=== PATIENT | male | born 1955 | race Two or more races ===

== ENCOUNTER 2018-02-13 17:25 | Inpatient (IN) | payer SELFPAY ==
[2018-02-13] MEDS ORDERED: CONTRAST GIVEN. MC (18:15)
[2018-02-13 18:26] LABS: ADD MAN DIFF? NO
[2018-02-13] MEDS: IOHEXOL 300 MG/ML 100ML VIAL. IV (18:30)
[2018-02-13 18:37] LABS: BASO # 0.1 x10^3/uL (0.0-0.2); BASO % 1 % (0-3); EOS % 0 % (0-3); HEMATOCRIT 30.6 % (39.0-53.0); LYMPH # 1.9 x10^3/uL (1.0-4.8); LYMPH % 24 % (24-48); MEAN CORPUSCULAR HEMOGLOBIN 25 pg (25-35); MEAN CORPUSCULAR HGB CONC 33 g/dL (31-37); MEAN CORPUSCULAR VOLUME 76 fL (79-100); MONO % 13 % (0-9); NEUT # 4.8 x10^3uL (1.8-7.7); NEUT % 62 % (31-73); PLATELET COUNT 113 x10^3/uL (140-400); RED BLOOD COUNT 4.06 x10^6/uL (4.30-5.70); RED CELL DISTRIBUTION WIDTH 16.5 % (11.5-14.5); WHITE BLOOD COUNT 7.8 x10^3/uL (4.0-11.0)
[2018-02-13 18:39] LABS: AMMONIA 83 mcmol/L (11-34)
[2018-02-13 18:42] LABS: ANION GAP 10 (6-14); BLOOD UREA NITROGEN 31 mg/dL (8-26); BUN/CREATININE RATIO 34 (6-20); CALCIUM 8.6 mg/dL (8.5-10.1); CARBON DIOXIDE 22 mmol/L (21-32); CHLORIDE 106 mmol/L (98-107); CREATININE 0.9 mg/dL (0.7-1.3); GFR 85.8; GLUCOSE 95 mg/dL (70-99); POTASSIUM 4.7 mmol/L (3.5-5.1); SODIUM 138 mmol/L (136-145)
[2018-02-13 18:47] LABS: ALBUMIN 2.6 g/dL (3.4-5.0); ALBUMIN/GLOBULIN RATIO 0.6 (1.0-1.7); ALK PHOS 94 U/L (46-116); ALT (SGPT) 53 U/L (16-63); AST (SGOT) 132 U/L (15-37); TOTAL BILIRUBIN 2.3 mg/dL (0.2-1.0); TOTAL PROTEIN 7.2 g/dL (6.4-8.2)
[2018-02-13 18:49] LABS: TROPONINI < 0.017 ng/mL (0.000-0.055)
[2018-02-13] MEDS: PANTOPRAZOLE IV PUSH 40 MG VIAL. IVP (19:40)
[2018-02-13 19:52] LABS: LIPASE 149 U/L (73-393)
[2018-02-13] MEDS: OCTREOTIDE 100 MCG/ML VIAL IV (19:52)
[2018-02-13 19:56] LABS: INR 1.6 (0.8-1.1); PROTHROMBIN TIME PATIENT 18.3 SEC (11.7-14.0)
[2018-02-13] MEDS: IV NORMAL SALINE 1000ML BAG 1,000 ML IV ×2 (20:00→22:45)
[2018-02-13] MEDS: ONDANSETRON PF 4 MG/2 ML VIAL. IV (20:00)
[2018-02-13 20:01] LABS: PARTIAL THROMBOPLASTIN TIME 34 SEC (24-38)
[2018-02-13] MEDS: PANTOPRAZOLE SODIUM IV DRIP 80 MG in IV NORMAL SALINE 100ML 100 ML IV (20:04)
[2018-02-13] MEDS: OCTREOTIDE 500 MCG in IV NORMAL SALINE 100ML 100 ML IV (20:32)
[2018-02-13] MEDS ORDERED: ONDANSETRON PF 4 MG/2 ML VIAL. IV (22:45)
[2018-02-14 01:29] LABS: HEMOGLOBIN 7.9 g/dL (13.0-17.5)
[2018-02-14] MEDS: PANTOPRAZOLE SODIUM IV DRIP 80 MG in IV NORMAL SALINE 100ML 100 ML IV ×3 (05:53→23:13)
[2018-02-14 06:41] LABS: ADD MAN DIFF? NO
[2018-02-14 06:54] LABS: BASO # 0.1 x10^3/uL (0.0-0.2); BASO % 1 % (0-3); EOS % 0 % (0-3); HEMATOCRIT 22.1 % (39.0-53.0); HEMOGLOBIN 7.3 g/dL (13.0-17.5); LYMPH # 3.2 x10^3/uL (1.0-4.8); LYMPH % 27 % (24-48); MEAN CORPUSCULAR HEMOGLOBIN 25 pg (25-35); MEAN CORPUSCULAR HGB CONC 33 g/dL (31-37); MEAN CORPUSCULAR VOLUME 75 fL (79-100); MONO # 1.3 x10^3/uL (0.0-1.1); MONO % 11 % (0-9); NEUT # 7.2 x10^3uL (1.8-7.7); NEUT % 61 % (31-73); PLATELET COUNT 89 x10^3/uL (140-400); RED BLOOD COUNT 2.95 x10^6/uL (4.30-5.70); RED CELL DISTRIBUTION WIDTH 16.3 % (11.5-14.5); WHITE BLOOD COUNT 11.8 x10^3/uL (4.0-11.0)
[2018-02-14 07:10] LABS: ALK PHOS 67 U/L (46-116); ALT (SGPT) 43 U/L (16-63); ANION GAP 10 (6-14); AST (SGOT) 125 U/L (15-37); BLOOD UREA NITROGEN 30 mg/dL (8-26); CALCIUM 7.5 mg/dL (8.5-10.1); CARBON DIOXIDE 22 mmol/L (21-32); CHLORIDE 110 mmol/L (98-107); CREATININE 0.9 mg/dL (0.7-1.3); DIRECT BILIRUBIN 1.1 mg/dL (0.0-0.2); GFR 85.8; GLUCOSE 89 mg/dL (70-99); POTASSIUM 4.4 mmol/L (3.5-5.1); SODIUM 142 mmol/L (136-145); TOTAL BILIRUBIN 1.8 mg/dL (0.2-1.0); TOTAL PROTEIN 5.6 g/dL (6.4-8.2)
[2018-02-14] MEDS ORDERED: PROPOFOL 40 ML IV (08:04)
[2018-02-14] MEDS: EPINEPHrine SYRINGE 1 MG/10 ML SYRINGE IM (08:27)
[2018-02-14] MEDS ORDERED: EPINEPHrine SYRINGE 1 MG/10 ML SYRINGE (08:33)
[2018-02-14] MEDS: IV NORMAL SALINE 1000ML BAG 1,000 ML IV ×2 (08:45→16:57)
[2018-02-14] MEDS ORDERED: NICOTINE 21MG PATCH. TD (11:15)
[2018-02-14] MEDS ORDERED: MORPHINE SULFATE 2 MG/ML DISP.SYRIN. IV (11:15)
[2018-02-14] MEDS ORDERED: chlordiazePOXIDE HCL 25 MG CAPSULE PO (11:15)
[2018-02-14] MEDS ORDERED: HYDROcodone/APAP 5/325MG 1 TAB TABLET PO (11:15)
[2018-02-14] MEDS ORDERED: ACETAMINOPHEN 500 MG TABLET PO (11:15)
[2018-02-14 12:15] LABS: HEMOGLOBIN 7.2 g/dL (13.0-17.5)
[2018-02-14] MEDS: PROPRANOLOL 10 MG TABLET. PO ×2 (14:11→21:08)
[2018-02-14 17:59] LABS: HEMOGLOBIN 6.7 g/dL (13.0-17.5)
[2018-02-14 18:13] LABS: AFPT MARKER 124.8 ng/mL (0.0-8.3)
[2018-02-14 21:24] LABS: IMMEDIATE SPIN CROSSMATCH 1 2
[2018-02-15 01:00] LABS: HEMOGLOBIN 8.8 g/dL (13.0-17.5)
[2018-02-15] MEDS: IV NORMAL SALINE 1000ML BAG 1,000 ML IV ×2 (04:45→14:45)
[2018-02-15 05:28] LABS: HEMOGLOBIN 9.2 g/dL (13.0-17.5)
[2018-02-15] MEDS: PROPRANOLOL 10 MG TABLET. PO ×2 (08:35→21:15)
[2018-02-15 11:54] LABS: HEMOGLOBIN 9.8 g/dL (13.0-17.5)
[2018-02-15] MEDS: PANTOPRAZOLE 40 MG TABLET.DR. PO (16:57)
[2018-02-15 18:53] LABS: HEMOGLOBIN 9.3 g/dL (13.0-17.5)
[2018-02-16] MEDS: IV NORMAL SALINE 1000ML BAG 1,000 ML IV ×2 (00:45→08:06)
[2018-02-16] MEDS: PANTOPRAZOLE 40 MG TABLET.DR. PO (08:03)
[2018-02-16] MEDS: PROPRANOLOL 10 MG TABLET. PO (08:04)
[2018-02-16] MEDS: MAGNESIUM HYDROXIDE 2,400 MG/30 ML ORAL.SUSP. PO (10:54)
[2018-02-16] MEDS: SIMETHICONE 80 MG TAB.CHEW PO (10:54)
== END 2018-02-16 14:33 | disposition home or self-care (01) | DRG 369 ==
LOC: 2 SOUTH 21:30 → ER 17:25 → 2 SOUTH 19:48
PROC: 30233N1 Transfusion of Nonautologous Red Blood Cells into Peripheral Vein, Percutaneous Approach (ICD-10-PCS; principal; 2018-02-14 08:00)
PROC: 3E0G8GC Introduction of Other Therapeutic Substance into Upper GI, Via Natural or Artificial Opening Endoscopic (ICD-10-PCS; 2018-02-14 08:00)
DX: K22.6 Gastro-esophageal laceration-hemorrhage syndrome (principal); K76.6 Portal hypertension; R71.0 Precipitous drop in hematocrit; K70.31 Alcoholic cirrhosis of liver with ascites; I85.10 Secondary esophageal varices without bleeding; K29.70 Gastritis, unspecified, without bleeding; D72.828 Other elevated white blood cell count; K59.00 Constipation, unspecified; D69.6 Thrombocytopenia, unspecified
CPT/HCPCS: 36415; 71045; 74177; 80048; 80053; 80076; 82105; 82140; 83690; 84484; 85018; 85025; 85610; 85730; 86850; 86900; 86901; 86920; 93005; 96365; 96368; 96374; 96375; 97165-GO; 99285; 99285-25; C9113; J0171; J0690; J2354; J2405; J2704; J7030; P9016

== ENCOUNTER 2018-02-23 10:36 | Emergency (ER) | payer SELFPAY ==
[2018-02-23 11:14] LABS: ADD MAN DIFF? NO
[2018-02-23 11:18] LABS: AGAP ISTAT 15 mmol/L (6-14); BUN ISTAT 19 mg/dL (8-26); CHLORIDE ISTAT 108 mmol/L (98-110); GLUCOSE ISTAT 131 mg/dL (70-99); HEMATOCRIT ISTAT 36 % (37-52); HEMOGLOBIN ISTAT 12.2 g/dL (14-18); ION CA ISTAT 1.05 mmol/L (1.13-1.32); SODIUM ISTAT 141 mmol/L (135-145); TOT CO2 ISTAT 22 mmol/L (23-32)
[2018-02-23 11:32] LABS: RED BLOOD COUNT 3.87 x10^6/uL (4.30-5.70); WHITE BLOOD COUNT 6.3 x10^3/uL (4.0-11.0)
[2018-02-23 11:33] LABS: BASO # 0.1 x10^3/uL (0.0-0.2); BASO % 1 % (0-3); EOS # 0.1 x10^3/uL (0.0-0.7); EOS % 1 % (0-3); HEMATOCRIT 31.4 % (39.0-53.0); HEMOGLOBIN 10.1 g/dL (13.0-17.5); LYMPH # 1.9 x10^3/uL (1.0-4.8); LYMPH % 31 % (24-48); MEAN CORPUSCULAR HEMOGLOBIN 26 pg (25-35); MEAN CORPUSCULAR HGB CONC 32 g/dL (31-37); MEAN CORPUSCULAR VOLUME 81 fL (79-100); MONO # 0.7 x10^3/uL (0.0-1.1); MONO % 11 % (0-9); NEUT # 3.5 x10^3uL (1.8-7.7); NEUT % 56 % (31-73); PLATELET COUNT 155 x10^3/uL (140-400); RED CELL DISTRIBUTION WIDTH 19.5 % (11.5-14.5)
[2018-02-23 11:44] LABS: NT-PRO BNP 101 pg/mL (0-124)
[2018-02-23 11:45] LABS: INR 1.3 (0.8-1.1); PROTHROMBIN TIME PATIENT 15.6 SEC (11.7-14.0)
== END 2018-02-23 13:05 | disposition home or self-care (01) ==
LOC: ER 10:36
DX: M79.89 Other specified soft tissue disorders (principal); F10.10 Alcohol abuse, uncomplicated; Y90.9 Presence of alcohol in blood, level not specified; Z98.890 Other specified postprocedural states
CPT/HCPCS: 36415; 80047; 83880; 85025; 85610; 93971; 99285-25

== ENCOUNTER 2018-03-09 09:48 | Outpatient (CLI) | payer SELFPAY ==
[~2018-03-09] VITALS: Ht 160 cm; Wt 61.2 kg
[2018-03-09] VITALS (9 sets, daily range): BP systolic 131–178; BP diastolic 68–98
[~2018-03-09 09:48] MED LIST: PROP10TA PO; Pantoprazole PO
[2018-03-09 10:23] LABS: BASO # 0.1 x10^3/uL (0.0-0.2); BASO % 1 % (0-3); EOS # 0.2 x10^3/uL (0.0-0.7); EOS % 4 % (0-3); HEMATOCRIT 32.3 % (39.0-53.0); HEMOGLOBIN 10.5 g/dL (13.0-17.5); LYMPH % 34 % (24-48); MEAN CORPUSCULAR HEMOGLOBIN 26 pg (25-35); MEAN CORPUSCULAR HGB CONC 33 g/dL (31-37); MEAN CORPUSCULAR VOLUME 79 fL (79-100); MONO # 0.9 x10^3/uL (0.0-1.1); MONO % 15 % (0-9); NEUT # 2.8 x10^3uL (1.8-7.7); NEUT % 47 % (31-73); PLATELET COUNT 136 x10^3/uL (140-400); RED BLOOD COUNT 4.08 x10^6/uL (4.30-5.70); RED CELL DISTRIBUTION WIDTH 18.2 % (11.5-14.5)
[2018-03-09 10:32] LABS: PROTHROMBIN TIME PATIENT 15.3 SEC (11.7-14.0)
[2018-03-09 10:41] LABS: CALCIUM 8.4 mg/dL (8.5-10.1); CREATININE 1.1 mg/dL (0.7-1.3); GFR 68.1; POTASSIUM 4.2 mmol/L (3.5-5.1)
[2018-03-09] MEDS ORDERED: ALBUMIN HUMAN 25% 100 ML IV ONE ×2 (11:41→12:00)
--- NOTE | 2018-03-09 11:56 | RAD ---
Ultrasound-guided paracentesis 03/09/2018 11:53 AM Procedure: The risks and benefits of the procedure were discussed the patient. Informed consent was obtained. A timeout procedure was performed. Sonographic evaluation of the abdomen was performed demonstrating ascites . The right lower quadrant was prepped and draped using maximum sterile barrier technique. 1% lidocaine without epinephrine was administered for local anesthesia. Real-time ultrasonographic guidance was used in passing a 5 Ethiopian Yueh catheter into the fluid collection. 5.8 L of serous ascites was removed. Samples of fluid were sent for further evaluation per ordering physician request. The catheter was removed and pressure held to achieve hemostasis. A sterile dressing was applied. Impression: Successful ultrasound-guided paracentesis
[2018-03-09 13:44] LABS: BF CLARITY HAZY; BF COLOR YELLOW; BF MON % 95 %; BF PMN % 5 %; BF RBC COUNT 51 /cmm; BF SOURCE ASCITES; BF WBC COUNT 107 /cmm
[2018-03-11 13:26] LABS: HCV ULTRA QUANT PCR 2230000 IU/mL (.)
== END 2018-03-09 13:07 | disposition home or self-care (01) ==
LOC: INTRAD 09:48
PROVIDERS: ATTEND Internal Medicine Gastroenterology
DX: K70.31 Alcoholic cirrhosis of liver with ascites (principal); I10 Essential (primary) hypertension; K29.50 Unspecified chronic gastritis without bleeding; Z79.899 Other long term (current) drug therapy; Z98.890 Other specified postprocedural states; Z83.3 Family history of diabetes mellitus
CPT/HCPCS: 36415; 49083; 80048; 82042; 85025; 85610; 86706; 86803; 89050; P9046; 87521

== ENCOUNTER 2018-03-29 02:43 | Inpatient (IN) | payer SELFPAY ==
[~2018-03-29] VITALS: Ht 160 cm; Wt 47.2 kg
[2018-03-29] VITALS (21 sets, daily range): BP systolic 76–117; BP diastolic 52–80
--- NOTE | 2018-03-29 03:02 | PHYS DOC ---
Past Medical History Past Medical History: Other Additional Past Medical Histor: cirrhosis Past Surgical History: Other Additional Past Surgical Histo: CATARACTS, endoscopy 02/2018 Alcohol Use: Heavy Drug Use: None Adult General Chief Complaint Chief Complaint: HEMATEMESIS/VOMITING BLOOD HPI HPI Patient is a 62 year old male who presents with large volume hematemesis. He admits to sudden onset severe nausea and mild epigastric discomfort. He has a history of liver failure and esophageal varices. He states that his symptoms started late this evening and he had 1 episode of bloody vomitus prior to coming to the emergency department. He had a large amount of hematemesis while on his way back to his emergency department room. Review of Systems Review of Systems Constitutional: Denies fever or chills [] Eyes: Denies change in visual acuity, redness, or eye pain [] HENT: Denies nasal congestion or sore throat [] Respiratory: Denies cough or shortness of breath [] Cardiovascular: No additional information not addressed in HPI [] GI: Denies abdominal pain, nausea, vomiting, bloody stools or diarrhea [] : Denies dysuria or hematuria [] Musculoskeletal: Denies back pain or joint pain [] Integument: Denies rash or skin lesions [] Neurologic: Denies headache, focal weakness or sensory changes [] Endocrine: Denies polyuria or polydipsia [] All other systems were reviewed and found to be within normal limits, except as documented in this note. Current Medications Current Medications Current Medications Medications (Trade) Dose Ordered Sig/Tasha Start Time Stop Time Status Last Admin Dose Admin Ceftriaxone Sodium 50 ml @ 100 mls/hr 1X ONCE 03/29/18 03:15 03/29/18 03:44 DC 03/29/18 03:15 100 MLS/HR Norepinephrine Bitartrate 250 ml @ 0 mls/hr 1X ONCE 03/29/18 04:30 03/29/18 04:42 DC Octreotide Acetate 500 mcg/ Sodium Chloride 101 ml @ 0 mls/hr CONT PRN 03/29/18 03:15 03/29/18 03:50 5 MLS/HR Ondansetron HCl (Zofran) 4 mg PRN Q8HRS PRN 03/29/18 04:30 03/30/18 04:29 Pantoprazole Sodium (PROTONIX VIAL for IV PUSH) 40 mg 1X ONCE 03/29/18 03:15 03/29/18 03:16 DC 03/29/18 03:17 40 MG Pantoprazole Sodium 80 mg/ Sodium Chloride 100 ml @ 10 mls/hr 1X ONCE 03/29/18 03:15 03/29/18 13:14 03/29/18 03:46 10 MLS/HR Sodium Chloride 1,000 ml @ 1,000 mls/hr 1X ONCE 03/29/18 04:30 03/29/18 05:29 03/29/18 04:30 1,000 MLS/HR Allergies Allergies Allergies Coded Allergies Type Severity Reaction Last Updated Verified No Known Drug Allergies 02/14/18 No Physical Exam Physical Exam GENERAL: Awake, alert, very ill-appearing, vomiting blood, pale skin, jaundiced HEAD/NECK/EYES: Trachea midline, no JVD, normocephalic, atraumatic ENT Airway patent, mucous membranes dry RESP: Nontachypneic, no respiratory distress, normal breath sounds bilaterally CV: Slight tachycardia, no appreciable murmur ABD/GI: Soft, non-tender, no guarding, no rebound, no palpable pulsatile mass BACK: Inspection NL EXT: Neurovascularly intact, no deformities SKIN: Warm, dry NEURO: Oriented X3, normal speech, no motor deficits, no sensory deficits, CN II - XII intact PSYCH: Cooperative, appropriate affect Current Patient Data Vital Signs Vital Signs Date Time Temp Pulse Resp B/P (MAP) Pulse Ox O2 Delivery O2 Flow Rate FiO2 03/29/18 03:08 98.6 78 18 107/75 (86) 97 Room Air 98.6 Lab Values Laboratory Tests Test 03/29/18 03:05 03/29/18 03:33 White Blood Count 7.7 x10^3/uL (4.0-11.0) Red Blood Count 3.34 x10^6/uL (4.30-5.70) L Hemoglobin 8.6 g/dL (13.0-17.5) L Hematocrit 25.7 % (39.0-53.0) L Mean Corpuscular Volume 77 fL (79-100) L Mean Corpuscular Hemoglobin 26 pg (25-35) Mean Corpuscular Hemoglobin Concent 33 g/dL (31-37) Red Cell Distribution Width 17.7 % (11.5-14.5) H Platelet Count 147 x10^3/uL (140-400) Neutrophils (%) (Auto) 46 % (31-73) Lymphocytes (%) (Auto) 37 % (24-48) Monocytes (%) (Auto) 13 % (0-9) H Eosinophils (%) (Auto) 2 % (0-3) Basophils (%) (Auto) 1 % (0-3) Neutrophils # (Auto) 3.6 x10^3uL (1.8-7.7) Lymphocytes # (Auto) 2.9 x10^3/uL (1.0-4.8) Monocytes # (Auto) 1.0 x10^3/uL (0.0-1.1) Eosinophils # (Auto) 0.2 x10^3/uL (0.0-0.7) Basophils # (Auto) 0.1 x10^3/uL (0.0-0.2) Sodium Level 139 mmol/L (136-145) Potassium Level 5.5 mmol/L (3.5-5.1) H Chloride Level 108 mmol/L (98-107) H Carbon Dioxide Level 22 mmol/L (21-32) Anion Gap 9 (6-14) Blood Urea Nitrogen 37 mg/dL (8-26) H Creatinine 1.5 mg/dL (0.7-1.3) H Estimated GFR (Cockcroft-Gault) 47.6 BUN/Creatinine Ratio 25 (6-20) H Glucose Level 111 mg/dL (70-99) H Lactic Acid Level 3.5 mmol/L (0.4-2.0) H Calcium Level 8.4 mg/dL (8.5-10.1) L Total Bilirubin 1.3 mg/dL (0.2-1.0) H Aspartate Amino Transferase (AST) 165 U/L (15-37) H Alanine Aminotransferase (ALT) 43 U/L (16-63) Alkaline Phosphatase 91 U/L (46-116) Total Protein 6.8 g/dL (6.4-8.2) Albumin 2.0 g/dL (3.4-5.0) L Albumin/Globulin Ratio 0.4 (1.0-1.7) L Lipase 321 U/L (73-393) Prothrombin Time 19.7 SEC (11.7-14.0) H Prothrombin Time INR 1.7 (0.8-1.1) H PTT 35 SEC (24-38) Laboratory Tests 03/29/18 03:05 Laboratory Tests 03/29/18 03:05 EKG EKG [] Radiology/Procedures Radiology/Procedures Indication: Hypotension from bleeding, blood pressure 70 systolic after a fluid bolus. Consent: The patient provided consent for this procedure. Procedure: Sterile gloves, gown, draped, mask etc. was used The patient was positioned appropriately and the skin over the right femoral region was prepped with chlorhexidine and draped in a sterile fashion. Local anesthesia was used. Ultrasound guidance utilized. A large bore needle was used to identify the vein. A guide wire was then inserted into the vein through the needle. A triple lumen catheter was then inserted into the vessel over the guide wire using the Seldinger technique. All ports showed good, free flowing blood return and were flushed with saline solution. The catheter was then securely fastened to the skin with sutures and covered with a sterile dressing. The patient tolerated the procedure well. Complications: none. [][] Impressions: Bleeding esophageal varices Hemorrhagic shock Course & Med Decision Making Course & Med Decision Making Pertinent Labs and Imaging studies reviewed. (See chart for details) Differential diagnosis includes but not limited to: Bleeding esophageal varices , hemorrhagic shock, portal hypertension, peptic ulcer disease, coagulopathy from liver failure, metabolic abnormality Patient vomited up a large tub of blood here in the ER as well as an episode at home. R vs B in favor of transfusing 1 unit prbc. His hemoglobin does not reflect his true blood loss. 5:12 AM. Patient given Protonix push and drip, IV fluids, octreotide drip, broad -spectrum antibiotics for decreased in-hospital mortality/morbidity, central line placed and Levophed gtt prn. Critical care time was 35 minutes which includes time at bedside, spent in discussion of patient's care with specialist and/or family members, with interpretation of laboratory and/or radiological studies and is exclusive of procedures. Dragon Disclaimer Dragon Disclaimer This electronic medical record was generated, in whole or in part, using a voice recognition dictation system. Departure Departure Impression: Primary Impression: Anemia due to blood loss Additional Impression: Hypotension Disposition: 09 ADMITTED INPATIENT Admitting Physician: Sara Castillo Condition: CRITICAL Referrals: NO PCP (PCP) Problem Qualifiers CRISTIAN BAKER DO Mar 29, 2018 03:02
[2018-03-29 03:11] LABS: BASO # 0.1 x10^3/uL (0.0-0.2); BASO % 1 % (0-3); EOS # 0.2 x10^3/uL (0.0-0.7); EOS % 2 % (0-3); HEMATOCRIT 25.7 % (39.0-53.0); HEMOGLOBIN 8.6 g/dL (13.0-17.5); LYMPH # 2.9 x10^3/uL (1.0-4.8); LYMPH % 37 % (24-48); MEAN CORPUSCULAR HEMOGLOBIN 26 pg (25-35); MEAN CORPUSCULAR HGB CONC 33 g/dL (31-37); MEAN CORPUSCULAR VOLUME 77 fL (79-100); MONO % 13 % (0-9); NEUT # 3.6 x10^3uL (1.8-7.7); NEUT % 46 % (31-73); PLATELET COUNT 147 x10^3/uL (140-400); RED BLOOD COUNT 3.34 x10^6/uL (4.30-5.70); RED CELL DISTRIBUTION WIDTH 17.7 % (11.5-14.5); WHITE BLOOD COUNT 7.7 x10^3/uL (4.0-11.0)
[2018-03-29] MEDS ORDERED: PANTOPRAZOLE SODIUM IV DRIP 80 MG in IV NORMAL SALINE 100ML 100 ML IV ONE (03:15)
[2018-03-29] MEDS ORDERED: ONDANSETRON PF 4 MG/2 ML VIAL. IV ONE (03:15)
[2018-03-29] MEDS ORDERED: IV NORMAL SALINE 1000ML BAG 1,000 ML IV ONE ×2 (03:15→04:30)
[2018-03-29] MEDS ORDERED: PANTOPRAZOLE IV PUSH 40 MG VIAL. IVP ONE (03:15)
[2018-03-29 03:20] LABS: CALCIUM 8.4 mg/dL (8.5-10.1); CREATININE 1.5 mg/dL (0.7-1.3); GFR 47.6; POTASSIUM 5.5 mmol/L (3.5-5.1)
[2018-03-29 03:26] LABS: ALBUMIN/GLOBULIN RATIO 0.4 (1.0-1.7); TOTAL BILIRUBIN 1.3 mg/dL (0.2-1.0); TOTAL PROTEIN 6.8 g/dL (6.4-8.2)
[2018-03-29] MEDS: OCTREOTIDE 500 MCG in IV NORMAL SALINE 100ML 100 ML IV PRN ×2 (03:50→22:07)
[2018-03-29 03:52] LABS: PROTHROMBIN TIME PATIENT 19.7 SEC (11.7-14.0)
[2018-03-29] MEDS ORDERED: ONDANSETRON PF 4 MG/2 ML VIAL. IV PRN (04:30)
[2018-03-29] MEDS ORDERED: NOREPINEPHRIN 8MG/250ML PREMIX 250 ML IV ONE (04:30)
--- NOTE | 2018-03-29 09:29 | PDOC2 ---
GI CONSULT Reason For Consult: Hematemesis HPI: HPI: 62 y/o male admitted to ICU through ER. Hematemesis (red blood) x 2 overnight. EGD 02/14/18 for coffee-ground emesis w/ grade II varices (non-bleeding and no red wheal sign so not banded), oozing in fundus near GEJ (?MW tear) - injected ( w/ cessation of bleeding), no gastric varices but moderate portal hypertensive gastropathy w/ gastritis, normal duodenum. H/o Hep C and alcohol overuse (not drinking now). On previous CT A/P, cirrhosis w/ suggestion of PV thrombus and suggestion of hypodense lesion in posterior right hepatic lobe. H/o ascites, s/ p paracentesis x 2 (last on 03/25). AFP elevated (124). Has been referred to hepatology - appt not until 05/2018. Last admission recs for beta jv and PPI - unclear what he takes at home ("two pills once a day"). Has not had liver biopsy. Early satiety, weight loss. No dysphagia. No hematochezia or melena. Some hypotension in ICU, on PPI and octreotide drips. Hgb 8.6, BUN 37, Cr 1.5, INR 1.7, bili 1.3, AST 165, ALT 43, Alk Phos 91. FH: Family History: No pertinent hx Social History: ALCOHOL: heavy (now sober) Drugs: None ROS: GEN: Denies fevers, chills, sweats HEENT: Denies blurred vision, sore throat CV: Denies chest pain RESP: Denies shortness of air, cough GI: Per HPI : Denies hematuria, dysuria ENDO: +weight loss NEURO: +dizziness MSK: Denies weakness, joint pain/swelling SKIN: Denies jaundice, pruritus Vitals: Vitals: Vital Signs Date Time Temp Pulse Resp B/P (MAP) Pulse Ox O2 Delivery O2 Flow Rate FiO2 03/29/18 09:00 63 15 81/54 (63) 96 Room Air 03/29/18 08:00 98.6 98.6 Labs: Labs: Laboratory Tests Test 03/29/18 03:05 03/29/18 03:33 03/29/18 08:35 White Blood Count 7.7 x10^3/uL (4.0-11.0) Red Blood Count 3.34 x10^6/uL (4.30-5.70) Hemoglobin 8.6 g/dL (13.0-17.5) 8.6 g/dL (13.0-17.5) Hematocrit 25.7 % (39.0-53.0) Mean Corpuscular Volume 77 fL (79-100) Mean Corpuscular Hemoglobin 26 pg (25-35) Mean Corpuscular Hemoglobin Concent 33 g/dL (31-37) Red Cell Distribution Width 17.7 % (11.5-14.5) Platelet Count 147 x10^3/uL (140-400) Neutrophils (%) (Auto) 46 % (31-73) Lymphocytes (%) (Auto) 37 % (24-48) Monocytes (%) (Auto) 13 % (0-9) Eosinophils (%) (Auto) 2 % (0-3) Basophils (%) (Auto) 1 % (0-3) Neutrophils # (Auto) 3.6 x10^3uL (1.8-7.7) Lymphocytes # (Auto) 2.9 x10^3/uL (1.0-4.8) Monocytes # (Auto) 1.0 x10^3/uL (0.0-1.1) Eosinophils # (Auto) 0.2 x10^3/uL (0.0-0.7) Basophils # (Auto) 0.1 x10^3/uL (0.0-0.2) Sodium Level 139 mmol/L (136-145) Potassium Level 5.5 mmol/L (3.5-5.1) Chloride Level 108 mmol/L (98-107) Carbon Dioxide Level 22 mmol/L (21-32) Anion Gap 9 (6-14) Blood Urea Nitrogen 37 mg/dL (8-26) Creatinine 1.5 mg/dL (0.7-1.3) Estimated GFR (Cockcroft-Gault) 47.6 BUN/Creatinine Ratio 25 (6-20) Glucose Level 111 mg/dL (70-99) Lactic Acid Level 3.5 mmol/L (0.4-2.0) 1.6 mmol/L (0.4-2.0) Calcium Level 8.4 mg/dL (8.5-10.1) Total Bilirubin 1.3 mg/dL (0.2-1.0) Aspartate Amino Transf (AST/SGOT) 165 U/L (15-37) Alanine Aminotransferase (ALT/SGPT) 43 U/L (16-63) Alkaline Phosphatase 91 U/L (46-116) Total Protein 6.8 g/dL (6.4-8.2) Albumin 2.0 g/dL (3.4-5.0) Albumin/Globulin Ratio 0.4 (1.0-1.7) Lipase 321 U/L (73-393) Prothrombin Time 19.7 SEC (11.7-14.0) Prothromb Time International Ratio 1.7 (0.8-1.1) Activated Partial Thromboplast Time 35 SEC (24-38) Allergies: Coded Allergies: No Known Drug Allergies (Unverified , 02/14/18) Medications: Current Medications Medications (Trade) Dose Ordered Sig/Tasha Route PRN Reason Start Time Stop Time Status Last Admin Dose Admin Ondansetron HCl (Zofran) 4 mg 1X ONCE IV 03/29/18 03:15 03/29/18 03:16 DC 03/29/18 03:18 Sodium Chloride 1,000 ml @ 1,000 mls/hr 1X ONCE IV 03/29/18 03:15 03/29/18 04:14 DC 03/29/18 03:17 Pantoprazole Sodium (PROTONIX VIAL for IV PUSH) 40 mg 1X ONCE IVP 03/29/18 03:15 03/29/18 03:16 DC 03/29/18 03:17 Octreotide Acetate 500 mcg/ Sodium Chloride 101 ml @ 0 mls/hr CONT PRN IV SEE I/O RECORD 03/29/18 03:15 03/29/18 03:50 Pantoprazole Sodium 80 mg/ Sodium Chloride 100 ml @ 10 mls/hr 1X ONCE IV 03/29/18 03:15 03/29/18 13:14 03/29/18 03:46 Ceftriaxone Sodium 50 ml @ 100 mls/hr 1X ONCE IV 03/29/18 03:15 03/29/18 03:44 DC 03/29/18 03:15 Sodium Chloride 1,000 ml @ 1,000 mls/hr 1X ONCE IV 03/29/18 04:30 03/29/18 05:29 DC 03/29/18 04:30 PE: GEN: NAD HEENT: Atraumatic, PERRL LUNGS: CTAB HEART: RRR ABD: NABS, some distention/ascites, non-tender EXTREMITY: No edema SKIN: No rashes, no jaundice NEURO/PSYCH: A & O 3 A/P: A/P: Hematemesis, early satiety, weight loss - h/o non-bleeding esophageal varices, portal hypertensive gastropathy, ?MW tear (injected 02/14/18) Cirrhosis - alcohol, Hep C H/o ascites and paracentesis Elevated AFP, past CT w/ possible liver lesion Anemia, hyperkalemia -- Plan for EGD this afternoon w/ Dr. Cronin - continue PPI and octreotide for now. Needs liver biopsy and further imaging. Will review office records. ROSA MARIA GILES Mar 29, 2018 09:29
[2018-03-29] MEDS ORDERED: IV NORMAL SALINE 500ML BAG 500 ML IV ONE (12:15)
[2018-03-29] MEDS ORDERED: PROPOFOL 20 ML IV ONE (12:59)
--- NOTE | 2018-03-29 13:23 | SSS ---
ADMIT DATE: 03/29/2018 INCOMPLETE DICTATION. CHIEF COMPLAINT: DICTATION ENDS HERE.. JADA PITTS DO DR: BOUBACAR/giovani JOB#: [id number] / [id number]
--- NOTE | 2018-03-29 13:34 | HP ---
ADMIT DATE: 03/29/2018 CHIEF COMPLAINT: Hematemesis. HISTORY OF PRESENT ILLNESS: The patient is a pleasant 62-year-old male who presented with hematemesis. He has had a previous GI bleed a couple of months ago with a Lisa-Hurst tear. While he was in the ER at this time, he had a massive amount of blood. The ER crew witnessed this. We were concerned he could have a massive GI bleed and has now been admitted to the ICU. He has not bled anymore. We did consult GI. He is going to get the EGD here in just a few minutes. PAST MEDICAL HISTORY: Cirrhosis, Lisa-Hurst tear and cataracts. ALLERGIES: None. FAMILY HISTORY: Hypertension. SOCIAL HISTORY: He used to drink heavily but he quit. No drugs or smoking. MEDICATIONS: Reviewed, please refer to the MRAD. REVIEW OF SYSTEMS: GENERAL: No history of weight change, weakness or fevers. SKIN: No bruising, hair changes or rashes. EYES: No blurred, double or loss of vision. NOSE AND THROAT: No history of nosebleeds, hoarseness or sore throat. HEART: No history of palpitations, chest pain or shortness of breath on exertion. LUNGS: Denies cough, hemoptysis, wheezing or shortness of breath. GASTROINTESTINAL: The patient complains of nausea. GENITOURINARY: No history of frequency, urgency, hesitancy or nocturia. NEUROLOGIC: Denies history of numbness, tingling, tremor or weakness. PSYCHIATRIC: No history of panic, anxiety or depression. ENDOCRINE: No history of heat or cold intolerance, polyuria or polydipsia. EXTREMITIES: Denies muscle weakness, joint pain, pain on walking or stiffness. PHYSICAL EXAMINATION: VITAL SIGNS: Temperature afebrile, pulse 80, respirations 18 and blood pressure 95/66. GENERAL: He is alert and cooperative. His daughter is present. HEART: Normal S1 and S2. LUNGS: Clear. ABDOMEN: Soft and slightly tender. EXTREMITIES: Trace edema. SKIN: No rashes. ENDOCRINE: No thyromegaly. LYMPHATICS: No cervical nodes. HEMATOPOIETIC: No bruising. LABORATORY DATA: Hemoglobin is 8.6. We gave him 1 unit of blood and is now still 8.6. Electrolytes: Sodium 139, potassium 5.5, chloride 108, bicarbonate 22, BUN 37, creatinine 1.5 and glucose 111. AST 165. ASSESSMENT AND PLAN: Gastrointestinal bleed. I suspect he has got cirrhosis with esophageal varices. We will go ahead and monitor his hemoglobin closely. We have consulted Gastrointestinal. He is going to get an esophagogastroduodenoscopy today. IV proton pump inhibitors. Continue home medicines. PROGNOSIS: Guarded. JADA PITTS DO DR: BOUBACAR/giovani JOB#: [id number] / [id number]
[2018-03-29] MEDS: PANTOPRAZOLE SODIUM IV DRIP 80 MG in IV NORMAL SALINE 100ML 100 ML IV SCH ×2 (13:38→23:06)
--- NOTE | 2018-03-29 13:38 | PDOC4 ---
PROCEDURE Procedure EGD for hematemesis, hx of cirrhosis Anesthesia with propofol Findings- grade 2-3 varices but without bleeding and without high risk signs ( red protuberance, wheal, etc) ; large organized clot in fundus of stomach- no active bleeding, NO sign of MW tear (as was seen last EGD), portal gastropathy Plan- continue octreotide and protonix consider repeat EGD later once clot resolves ALAN MOTT MD Mar 29, 2018 13:38
[2018-03-29] MEDS: IV NORMAL SALINE 1000ML BAG 1,000 ML IV SCH ×2 (16:58→22:07)
[2018-03-29] MEDS: ZOLPIDEM 5 MG TABLET. PO PRN (22:02)
[2018-03-30] VITALS (18 sets, daily range): BP systolic 83–111; BP diastolic 52–67
[2018-03-30 06:05] LABS: EOS % 2 % (0-3); HEMATOCRIT 23.7 % (39.0-53.0); HEMOGLOBIN 8.1 g/dL (13.0-17.5); LYMPH % 36 % (24-48); MEAN CORPUSCULAR HEMOGLOBIN 27 pg (25-35); MEAN CORPUSCULAR HGB CONC 34 g/dL (31-37); MEAN CORPUSCULAR VOLUME 80 fL (79-100); MONO % 15 % (0-9); NEUT % 46 % (31-73); PLATELET COUNT 102 x10^3/uL (140-400); RED BLOOD COUNT 2.96 x10^6/uL (4.30-5.70); RED CELL DISTRIBUTION WIDTH 18.3 % (11.5-14.5); WHITE BLOOD COUNT 7.2 x10^3/uL (4.0-11.0)
[2018-03-30 06:06] LABS: BASO % 1 % (0-3); EOS # 0.1 x10^3/uL (0.0-0.7); LYMPH # 2.6 x10^3/uL (1.0-4.8); MONO # 1.1 x10^3/uL (0.0-1.1); NEUT # 3.3 x10^3uL (1.8-7.7)
[2018-03-30 06:28] LABS: CALCIUM 7.4 mg/dL (8.5-10.1); CREATININE 1.1 mg/dL (0.7-1.3); GFR 68.1; POTASSIUM 4.2 mmol/L (3.5-5.1)
--- NOTE | 2018-03-30 09:21 | PDOC ---
PROGRESS NOTES Chief Complaint Chief Complaint Hematemesis Esophageal varices Lisa Hurst tea Cirrhosis Cataracts History of Present Illness History of Present Illness Pt seen and examined in ICU Dw RN VSS stable Pt resting w/ NAD at bedside resting Vitals Vitals Vital Signs Date Time Temp Pulse Resp B/P (MAP) Pulse Ox O2 Delivery O2 Flow Rate FiO2 03/30/18 06:00 67 19 99/64 (76) 95 Room Air 03/30/18 04:00 97.6 97.6 03/29/18 13:47 3 Physical Exam General: Cooperative, No acute distress Heart: Regular rate, Normal S1, Normal S2 Lungs: Clear Abdomen: Normal bowel sounds, Soft Extremities: No clubbing, No cyanosis Skin: No rashes, No breakdown Labs LABS Laboratory Tests Test 03/29/18 17:08 03/30/18 05:50 Potassium Level 4.7 mmol/L (3.5-5.1) 4.2 mmol/L (3.5-5.1) White Blood Count 7.2 x10^3/uL (4.0-11.0) Red Blood Count 2.96 x10^6/uL (4.30-5.70) Hemoglobin 8.1 g/dL (13.0-17.5) Hematocrit 23.7 % (39.0-53.0) Mean Corpuscular Volume 80 fL (79-100) Mean Corpuscular Hemoglobin 27 pg (25-35) Mean Corpuscular Hemoglobin Concent 34 g/dL (31-37) Red Cell Distribution Width 18.3 % (11.5-14.5) Platelet Count 102 x10^3/uL (140-400) Neutrophils (%) (Auto) 46 % (31-73) Lymphocytes (%) (Auto) 36 % (24-48) Monocytes (%) (Auto) 15 % (0-9) Eosinophils (%) (Auto) 2 % (0-3) Basophils (%) (Auto) 1 % (0-3) Neutrophils # (Auto) 3.3 x10^3uL (1.8-7.7) Lymphocytes # (Auto) 2.6 x10^3/uL (1.0-4.8) Monocytes # (Auto) 1.1 x10^3/uL (0.0-1.1) Eosinophils # (Auto) 0.1 x10^3/uL (0.0-0.7) Basophils # (Auto) 0.0 x10^3/uL (0.0-0.2) Sodium Level 144 mmol/L (136-145) Chloride Level 115 mmol/L (98-107) Carbon Dioxide Level 20 mmol/L (21-32) Anion Gap 9 (6-14) Blood Urea Nitrogen 41 mg/dL (8-26) Creatinine 1.1 mg/dL (0.7-1.3) Estimated GFR (Cockcroft-Gault) 68.1 Glucose Level 88 mg/dL (70-99) Calcium Level 7.4 mg/dL (8.5-10.1) Review of Systems Review of Systems CO fatigue Denies pain Assessment and Plan Assessmemt and Plan Problems Medical Problems: (1) Anemia due to blood loss Status: Acute (2) Hypotension Status: Acute Hematemesis Esophageal varices Lisa Hurst tea Cirrhosis Cataracts Plan: ICU monitoring Monitor hemoglobin Hydration Labs PPI Appreciate GI input Comment Review of Relevant I have reviewed the following items sushant (where applicable) has been applied. Labs Laboratory Tests Test 03/29/18 03:05 03/29/18 03:33 03/29/18 07:00 03/29/18 08:35 White Blood Count 7.7 x10^3/uL (4.0-11.0) Red Blood Count 3.34 x10^6/uL (4.30-5.70) Hemoglobin 8.6 g/dL (13.0-17.5) 8.6 g/dL (13.0-17.5) Hematocrit 25.7 % (39.0-53.0) Mean Corpuscular Volume 77 fL (79-100) Mean Corpuscular Hemoglobin 26 pg (25-35) Mean Corpuscular Hemoglobin Concent 33 g/dL (31-37) Red Cell Distribution Width 17.7 % (11.5-14.5) Platelet Count 147 x10^3/uL (140-400) Neutrophils (%) (Auto) 46 % (31-73) Lymphocytes (%) (Auto) 37 % (24-48) Monocytes (%) (Auto) 13 % (0-9) Eosinophils (%) (Auto) 2 % (0-3) Basophils (%) (Auto) 1 % (0-3) Neutrophils # (Auto) 3.6 x10^3uL (1.8-7.7) Lymphocytes # (Auto) 2.9 x10^3/uL (1.0-4.8) Monocytes # (Auto) 1.0 x10^3/uL (0.0-1.1) Eosinophils # (Auto) 0.2 x10^3/uL (0.0-0.7) Basophils # (Auto) 0.1 x10^3/uL (0.0-0.2) Sodium Level 139 mmol/L (136-145) Potassium Level 5.5 mmol/L (3.5-5.1) Chloride Level 108 mmol/L (98-107) Carbon Dioxide Level 22 mmol/L (21-32) Anion Gap 9 (6-14) Blood Urea Nitrogen 37 mg/dL (8-26) Creatinine 1.5 mg/dL (0.7-1.3) Estimated GFR (Cockcroft-Gault) 47.6 BUN/Creatinine Ratio 25 (6-20) Glucose Level 111 mg/dL (70-99) Lactic Acid Level 3.5 mmol/L (0.4-2.0) 1.6 mmol/L (0.4-2.0) Calcium Level 8.4 mg/dL (8.5-10.1) Total Bilirubin 1.3 mg/dL (0.2-1.0) Aspartate Amino Transf (AST/SGOT) 165 U/L (15-37) Alanine Aminotransferase (ALT/SGPT) 43 U/L (16-63) Alkaline Phosphatase 91 U/L (46-116) Total Protein 6.8 g/dL (6.4-8.2) Albumin 2.0 g/dL (3.4-5.0) Albumin/Globulin Ratio 0.4 (1.0-1.7) Lipase 321 U/L (73-393) Prothrombin Time 19.7 SEC (11.7-14.0) Prothromb Time International Ratio 1.7 (0.8-1.1) Activated Partial Thromboplast Time 35 SEC (24-38) Nasal Screen MRSA (PCR) Positive (Negative) Test 03/29/18 17:08 03/30/18 05:50 Potassium Level 4.7 mmol/L (3.5-5.1) 4.2 mmol/L (3.5-5.1) White Blood Count 7.2 x10^3/uL (4.0-11.0) Red Blood Count 2.96 x10^6/uL (4.30-5.70) Hemoglobin 8.1 g/dL (13.0-17.5) Hematocrit 23.7 % (39.0-53.0) Mean Corpuscular Volume 80 fL (79-100) Mean Corpuscular Hemoglobin 27 pg (25-35) Mean Corpuscular Hemoglobin Concent 34 g/dL (31-37) Red Cell Distribution Width 18.3 % (11.5-14.5) Platelet Count 102 x10^3/uL (140-400) Neutrophils (%) (Auto) 46 % (31-73) Lymphocytes (%) (Auto) 36 % (24-48) Monocytes (%) (Auto) 15 % (0-9) Eosinophils (%) (Auto) 2 % (0-3) Basophils (%) (Auto) 1 % (0-3) Neutrophils # (Auto) 3.3 x10^3uL (1.8-7.7) Lymphocytes # (Auto) 2.6 x10^3/uL (1.0-4.8) Monocytes # (Auto) 1.1 x10^3/uL (0.0-1.1) Eosinophils # (Auto) 0.1 x10^3/uL (0.0-0.7) Basophils # (Auto) 0.0 x10^3/uL (0.0-0.2) Sodium Level 144 mmol/L (136-145) Chloride Level 115 mmol/L (98-107) Carbon Dioxide Level 20 mmol/L (21-32) Anion Gap 9 (6-14) Blood Urea Nitrogen 41 mg/dL (8-26) Creatinine 1.1 mg/dL (0.7-1.3) Estimated GFR (Cockcroft-Gault) 68.1 Glucose Level 88 mg/dL (70-99) Calcium Level 7.4 mg/dL (8.5-10.1) Laboratory Tests Test 03/29/18 17:08 03/30/18 05:50 Potassium Level 4.7 mmol/L (3.5-5.1) 4.2 mmol/L (3.5-5.1) White Blood Count 7.2 x10^3/uL (4.0-11.0) Red Blood Count 2.96 x10^6/uL (4.30-5.70) Hemoglobin 8.1 g/dL (13.0-17.5) Hematocrit 23.7 % (39.0-53.0) Mean Corpuscular Volume 80 fL (79-100) Mean Corpuscular Hemoglobin 27 pg (25-35) Mean Corpuscular Hemoglobin Concent 34 g/dL (31-37) Red Cell Distribution Width 18.3 % (11.5-14.5) Platelet Count 102 x10^3/uL (140-400) Neutrophils (%) (Auto) 46 % (31-73) Lymphocytes (%) (Auto) 36 % (24-48) Monocytes (%) (Auto) 15 % (0-9) Eosinophils (%) (Auto) 2 % (0-3) Basophils (%) (Auto) 1 % (0-3) Neutrophils # (Auto) 3.3 x10^3uL (1.8-7.7) Lymphocytes # (Auto) 2.6 x10^3/uL (1.0-4.8) Monocytes # (Auto) 1.1 x10^3/uL (0.0-1.1) Eosinophils # (Auto) 0.1 x10^3/uL (0.0-0.7) Basophils # (Auto) 0.0 x10^3/uL (0.0-0.2) Sodium Level 144 mmol/L (136-145) Chloride Level 115 mmol/L (98-107) Carbon Dioxide Level 20 mmol/L (21-32) Anion Gap 9 (6-14) Blood Urea Nitrogen 41 mg/dL (8-26) Creatinine 1.1 mg/dL (0.7-1.3) Estimated GFR (Cockcroft-Gault) 68.1 Glucose Level 88 mg/dL (70-99) Calcium Level 7.4 mg/dL (8.5-10.1) Medications Current Medications Ondansetron HCl (Zofran) 4 mg 1X ONCE IV Last administered on 03/29/18at 03:18 ; Start 03/29/18 at 03:15; Stop 03/29/18 at 03:16; Status DC Sodium Chloride 1,000 ml @ 1,000 mls/hr 1X ONCE IV Last administered on at 03:17; Start 03/29/18 at 03:15; Stop 03/29/18 at 04:14; Status DC Pantoprazole Sodium (PROTONIX VIAL for IV PUSH) 40 mg 1X ONCE IVP Last administered on 03/29/18at 03:17; Start 03/29/18 at 03:15; Stop 03/29/18 at 03:16 ; Status DC Octreotide Acetate 500 mcg/ Sodium Chloride 101 ml @ 0 mls/hr CONT PRN IV SEE I /O RECORD Last administered on 03/29/18at 22:07; Start 03/29/18 at 03:15 Pantoprazole Sodium 80 mg/ Sodium Chloride 100 ml @ 10 mls/hr 1X ONCE IV Last administered on 03/29/18at 03:46; Start 03/29/18 at 03:15; Stop 03/29/18 at 13:14; Status DC Ceftriaxone Sodium 50 ml @ 100 mls/hr 1X ONCE IV Last administered on at 03:15; Start 03/29/18 at 03:15; Stop 03/29/18 at 03:44; Status DC Ondansetron HCl (Zofran) 4 mg PRN Q8HRS PRN IV NAUSEA/VOMITING; Start 03/29/18 at 04:30; Stop 03/30/18 at 04:29; Status DC Norepinephrine Bitartrate 250 ml @ 0 mls/hr 1X ONCE IV ; Start 03/29/18 at 04: 30; Stop 03/29/18 at 04:42; Status DC Sodium Chloride 1,000 ml @ 1,000 mls/hr 1X ONCE IV Last administered on at 04:30; Start 03/29/18 at 04:30; Stop 03/29/18 at 05:29; Status DC Sodium Chloride 500 ml @ 500 mls/hr 1X ONCE IV Last administered on at 12:15; Start 03/29/18 at 12:15; Stop 03/29/18 at 13:14; Status DC Zolpidem Tartrate (Ambien) 5 mg PRN QHS PRN PO INSOMNIA Last administered on 06/05at 22:02; Start 03/29/18 at 13:00 Propofol 20 ml @ As Directed STK-MED ONCE IV ; Start 03/29/18 at 12:59; Stop 06/05 at 13:00; Status DC Pantoprazole Sodium 80 mg/ Sodium Chloride 100 ml @ 10 mls/hr Q10H IV Last administered on 03/29/18at 23:06; Start 03/29/18 at 14:00 Sodium Chloride 1,000 ml @ 100 mls/hr Q10H IV Last administered on 03/29/18at 22:07; Start 03/29/18 at 17:00 Active Scripts Active [Pantoprazole] 40 MG Tablet.dr 40 Mg PO BIDAC 60 Days Vitals/I & O Vital Sign - Last 24 Hours 03/29/18 03/29/18 03/29/18 03/29/18 10:00 11:00 12:00 12:00 Pulse 67 65 67 Resp 14 14 14 B/P (MAP) 86/60 (69) 80/54 (63) 95/66 (76) Pulse Ox 98 98 97 O2 Delivery Room Air Room Air Room Air Room Air 03/29/18 03/29/18 03/29/18 03/29/18 12:31 12:33 13:32 13:47 Temp 98.6 97.6 98.6 97.6 Pulse 64 65 62 Resp 18 16 18 B/P (MAP) 102/63 120/64 Pulse Ox 97 100 99 O2 Delivery Room Air Room Air Nasal Cannula O2 Flow Rate 3 3 03/29/18 03/29/18 03/29/18 03/29/18 14:15 14:30 14:45 16:00 Temp 98.1 98.1 Pulse 80 60 58 62 Resp 18 16 16 20 B/P (MAP) 105/80 (88) 106/66 (79) 102/66 (78) 100/63 (75) Pulse Ox 97 98 98 98 O2 Delivery Room Air Room Air Room Air Room Air 03/29/18 03/29/18 03/29/18 03/29/18 16:00 17:00 18:00 19:00 Pulse 62 62 70 Resp 12 14 20 B/P (MAP) 99/60 (73) 84/52 (63) 92/54 (67) Pulse Ox 97 96 95 O2 Delivery Room Air Room Air Room Air Room Air 03/29/18 03/29/18 03/29/18 03/29/18 20:00 20:00 21:00 22:00 Temp 98.5 98.5 Pulse 64 68 76 Resp 18 16 22 B/P (MAP) 100/60 (73) 99/62 (74) 117/66 (83) Pulse Ox 96 96 97 O2 Delivery Room Air Room Air Room Air Room Air 03/29/18 03/30/18 03/30/18 03/30/18 23:00 00:00 00:00 01:00 Temp 96.7 96.7 Pulse 70 70 70 Resp 18 15 15 B/P (MAP) 87/67 (74) 91/58 (69) 85/58 (67) Pulse Ox 97 94 95 O2 Delivery Room Air Room Air Room Air Room Air 03/30/18 03/30/18 03/30/18 03/30/18 02:00 03:00 04:00 04:00 Temp 97.6 97.6 Pulse 68 70 72 Resp 16 16 15 B/P (MAP) 87/58 (68) 95/52 (66) 83/62 (69) Pulse Ox 96 96 95 O2 Delivery Room Air Room Air Room Air Room Air 03/30/18 03/30/18 05:00 06:00 Pulse 70 67 Resp 25 19 B/P (MAP) 96/62 (73) 99/64 (76) Pulse Ox 95 95 O2 Delivery Room Air Room Air Intake and Output 03/29/18 03/29/18 03/30/18 15:00 23:00 07:00 Intake Total 600 ml 193.38 ml 2835 ml Output Total 0 ml 620 ml 300 ml Balance 600 ml -426.62 ml 2535 ml JADA PITTS III DO Mar 30, 2018 09:21
--- NOTE | 2018-03-30 09:22 | RAD ---
Right upper quadrant abdominal ultrasound, 03/29/2018: HISTORY: Cirrhosis, ascites, abnormal CT study The gallbladder contains echogenic material without posterior acoustic shadowing. The appearance is that of gallbladder sludge. The gallbladder velazco are mildly thickened. There is a moderate volume of ascites. The common hepatic duct is of normal caliber. The hepatic margins are irregular compatible with cirrhosis. The possible hepatic mass described on the CT study of 02/13/2018 is not visible sonographically. There is no color flow in what appears to be the main portal vein compatible with thrombosis as suggested on the 02/13/2018 CT study. The visualized portions of the right kidney are unremarkable. The pancreas was obscured by overlying bowel. IMPRESSION: 1. Moderate volume of ascites. 2. Hepatic cirrhosis. 3. Extensive sludge in the gallbladder with mild gallbladder wall thickening. 4. Portal vein thrombosis. 5. No hepatic mass is identified. MR scanning may be useful for further evaluation of the possible hepatic lesion noted on 02/13/2018 CT study. Electronically signed by: Kem Lagunas MD (03/30/2018 9:19 AM) [facility]
[2018-03-30] MEDS: PANTOPRAZOLE SODIUM IV DRIP 80 MG in IV NORMAL SALINE 100ML 100 ML IV SCH (09:30)
--- NOTE | 2018-03-30 12:26 | PDOC ---
Subjective: Subjective: No bleeding. Feels better after paracentesis. Objective: Vital Signs: Vital Signs Date Time Temp Pulse Resp B/P (MAP) Pulse Ox O2 Delivery O2 Flow Rate FiO2 03/30/18 06:00 67 19 99/64 (76) 95 Room Air 03/30/18 04:00 97.6 97.6 03/29/18 13:47 3 Labs: Laboratory Tests Test 03/29/18 17:08 03/30/18 05:50 Potassium Level 4.7 mmol/L 4.2 mmol/L White Blood Count 7.2 x10^3/uL Red Blood Count 2.96 x10^6/uL Hemoglobin 8.1 g/dL Hematocrit 23.7 % Mean Corpuscular Volume 80 fL Mean Corpuscular Hemoglobin 27 pg Mean Corpuscular Hemoglobin Concent 34 g/dL Red Cell Distribution Width 18.3 % Platelet Count 102 x10^3/uL Neutrophils (%) (Auto) 46 % Lymphocytes (%) (Auto) 36 % Monocytes (%) (Auto) 15 % Eosinophils (%) (Auto) 2 % Basophils (%) (Auto) 1 % Neutrophils # (Auto) 3.3 x10^3uL Lymphocytes # (Auto) 2.6 x10^3/uL Monocytes # (Auto) 1.1 x10^3/uL Eosinophils # (Auto) 0.1 x10^3/uL Basophils # (Auto) 0.0 x10^3/uL Sodium Level 144 mmol/L Chloride Level 115 mmol/L Carbon Dioxide Level 20 mmol/L Anion Gap 9 Blood Urea Nitrogen 41 mg/dL Creatinine 1.1 mg/dL Estimated GFR (Cockcroft-Gault) 68.1 Glucose Level 88 mg/dL Calcium Level 7.4 mg/dL Imaging: EGD Findings- grade 2-3 varices but without bleeding and without high risk signs ( red protuberance, wheal, etc); large organized clot in fundus of stomach- no active bleeding, NO sign of MW tear (as was seen last EGD), portal gastropathy US IMPRESSION: 1. Moderate volume of ascites. 2. Hepatic cirrhosis. 3. Extensive sludge in the gallbladder with mild gallbladder wall thickening. 4. Portal vein thrombosis. 5. No hepatic mass is identified. MR scanning may be useful for further evaluation of the possible hepatic lesion noted on 02/13/2018 CT study. PE: GEN: NAD LUNGS: CTAB HEART: RRR ABD: less distention post paracentesis, non-tender NEURO/PSYCH: A & O 3 A/P: Hematemesis - resolved, EGD as above w/ clot Cirrhosis and ascites - alcohol, Hep C - s/p paracentesis x 3 Anemia - Hgb stable s/p transfusion 1 unit -- Stop octreotide, try clears, change to PO PPI. Will review need for repeating EGD prior to DC w/ Dr. Klein (as mentioned by Dr. Cronin). No hepatic mass on US as suspected on previous CT. Has elevated AFP. Will review need for additional imaging (MR) or biopsy re: this w/ Dr. Klein. Not a TIPS candidate w/ PV thrombosis, not an ideal transplant candidate without insurance. MELD 14. ROSA MARIA GILES Mar 30, 2018 12:26
[2018-03-30] MEDS: IV NORMAL SALINE 1000ML BAG 1,000 ML IV SCH ×2 (18:37→18:38)
[2018-03-30] MEDS: ZOLPIDEM 5 MG TABLET. PO PRN (22:10)
[2018-03-31 03:00] VITALS: BP 119/69
[2018-03-31 04:55] LABS: CALCIUM 7.1 mg/dL (8.5-10.1); POTASSIUM 3.6 mmol/L (3.5-5.1)
[2018-03-31 07:00] VITALS: BP 120/53
--- NOTE | 2018-03-31 08:10 | RAD ---
Ultrasound-guided paracentesis 03/31/2018 8:05 AM Procedure: The risks and benefits of the procedure were discussed the patient. Informed consent was obtained. A timeout procedure was performed. Sonographic evaluation of the abdomen was performed demonstrating ascites . The right lower quadrant was prepped and draped using maximum sterile barrier technique. 1% lidocaine without epinephrine was administered for local anesthesia. Real-time ultrasonographic guidance was used in passing a 5 Portuguese Yueh catheter into the fluid collection. 3.4 L of serous ascites was removed. The catheter was removed and pressure held to achieve hemostasis. A sterile dressing was applied. Impression: Successful ultrasound-guided paracentesis
[2018-03-31] MEDS: PANTOPRAZOLE 40 MG TABLET.DR. PO SCH (08:11)
[2018-03-31] MEDS ORDERED: ONDANSETRON ODT 4 MG TAB.RAPDIS. PO PRN (09:15)
[2018-03-31] MEDS ORDERED: ONDANSETRON PF 4 MG/2 ML VIAL. IV PRN (09:15)
[2018-03-31 10:46] LABS: HEMATOCRIT 24.6 % (39.0-53.0); HEMOGLOBIN 8.2 g/dL (13.0-17.5); RED BLOOD COUNT 3.02 x10^6/uL (4.30-5.70); RED CELL DISTRIBUTION WIDTH 18.9 % (11.5-14.5); WHITE BLOOD COUNT 6.7 x10^3/uL (4.0-11.0)
[2018-03-31 11:00] VITALS: BP 112/75
--- NOTE | 2018-03-31 11:43 | PDOC ---
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 Increase AFP History of Present Illness History of Present Illness transferred out of ICU 03/30/18 MAXIMUM TEMPERATURE 101 today-first episode of fevers No white count No UA, no chest x-ray Only ultrasound and paracentesis as imaging done No fluid sent after paracentesis He is hungry Plan: Sent for fluid studies including Gram stain aerobic and anaerobic culture. Serum ascites and albumin studies to measure S AAG CBC tomorrow Blood cultures now Empiric Zosyn AFTER BC Might be able to start a diet - will defer to GI All questions answered, discussed with family at bedside Not TIPS candidate, GI thinking about biopsy of the liver or MRI liver focused because of increased AFP Not drinking anymore, sober for 4 months Used to drink 12 beers a day Vitals Vitals Vital Signs Date Time Temp Pulse Resp B/P (MAP) Pulse Ox O2 Delivery O2 Flow Rate FiO2 03/31/18 11:00 100.2 79 20 112/75 (87) 94 Room Air 100.2 Physical Exam General: Cooperative, No acute distress Heart: Regular rate, Normal S1, Normal S2 Lungs: Clear Abdomen: Normal bowel sounds, Soft Extremities: No clubbing, No cyanosis Skin: No rashes, No breakdown Labs LABS Laboratory Tests Test 03/31/18 04:25 White Blood Count 6.7 x10^3/uL (4.0-11.0) Red Blood Count 3.02 x10^6/uL (4.30-5.70) Hemoglobin 8.2 g/dL (13.0-17.5) Hematocrit 24.6 % (39.0-53.0) Mean Corpuscular Volume 81 fL (79-100) Mean Corpuscular Hemoglobin 27 pg (25-35) Mean Corpuscular Hemoglobin Concent 33 g/dL (31-37) Red Cell Distribution Width 18.9 % (11.5-14.5) Platelet Count 105 x10^3/uL (140-400) Sodium Level 140 mmol/L (136-145) Potassium Level 3.6 mmol/L (3.5-5.1) Chloride Level 111 mmol/L (98-107) Carbon Dioxide Level 22 mmol/L (21-32) Anion Gap 7 (6-14) Blood Urea Nitrogen 31 mg/dL (8-26) Creatinine 1.0 mg/dL (0.7-1.3) Estimated GFR (Cockcroft-Gault) 76.0 Glucose Level 92 mg/dL (70-99) Calcium Level 7.1 mg/dL (8.5-10.1) Review of Systems Review of Systems Weak, fever, the rest of ROS 14 point negative, he is hungry Assessment and Plan Assessmemt and Plan Problems Medical Problems: (1) Anemia due to blood loss Status: Acute (2) Hypotension Status: Acute Comment Review of Relevant I have reviewed the following items sushant (where applicable) has been applied. Labs Laboratory Tests Test 03/29/18 17:08 03/30/18 05:50 03/31/18 04:25 Potassium Level 4.7 mmol/L (3.5-5.1) 4.2 mmol/L (3.5-5.1) 3.6 mmol/L (3.5-5.1) White Blood Count 7.2 x10^3/uL (4.0-11.0) 6.7 x10^3/uL (4.0-11.0) Red Blood Count 2.96 x10^6/uL (4.30-5.70) 3.02 x10^6/uL (4.30-5.70) Hemoglobin 8.1 g/dL (13.0-17.5) 8.2 g/dL (13.0-17.5) Hematocrit 23.7 % (39.0-53.0) 24.6 % (39.0-53.0) Mean Corpuscular Volume 80 fL (79-100) 81 fL (79-100) Mean Corpuscular Hemoglobin 27 pg (25-35) 27 pg (25-35) Mean Corpuscular Hemoglobin Concent 34 g/dL (31-37) 33 g/dL (31-37) Red Cell Distribution Width 18.3 % (11.5-14.5) 18.9 % (11.5-14.5) Platelet Count 102 x10^3/uL (140-400) 105 x10^3/uL (140-400) Neutrophils (%) (Auto) 46 % (31-73) Lymphocytes (%) (Auto) 36 % (24-48) Monocytes (%) (Auto) 15 % (0-9) Eosinophils (%) (Auto) 2 % (0-3) Basophils (%) (Auto) 1 % (0-3) Neutrophils # (Auto) 3.3 x10^3uL (1.8-7.7) Lymphocytes # (Auto) 2.6 x10^3/uL (1.0-4.8) Monocytes # (Auto) 1.1 x10^3/uL (0.0-1.1) Eosinophils # (Auto) 0.1 x10^3/uL (0.0-0.7) Basophils # (Auto) 0.0 x10^3/uL (0.0-0.2) Sodium Level 144 mmol/L (136-145) 140 mmol/L (136-145) Chloride Level 115 mmol/L (98-107) 111 mmol/L (98-107) Carbon Dioxide Level 20 mmol/L (21-32) 22 mmol/L (21-32) Anion Gap 9 (6-14) 7 (6-14) Blood Urea Nitrogen 41 mg/dL (8-26) 31 mg/dL (8-26) Creatinine 1.1 mg/dL (0.7-1.3) 1.0 mg/dL (0.7-1.3) Estimated GFR (Cockcroft-Gault) 68.1 76.0 Glucose Level 88 mg/dL (70-99) 92 mg/dL (70-99) Calcium Level 7.4 mg/dL (8.5-10.1) 7.1 mg/dL (8.5-10.1) Laboratory Tests Test 03/31/18 04:25 White Blood Count 6.7 x10^3/uL (4.0-11.0) Red Blood Count 3.02 x10^6/uL (4.30-5.70) Hemoglobin 8.2 g/dL (13.0-17.5) Hematocrit 24.6 % (39.0-53.0) Mean Corpuscular Volume 81 fL (79-100) Mean Corpuscular Hemoglobin 27 pg (25-35) Mean Corpuscular Hemoglobin Concent 33 g/dL (31-37) Red Cell Distribution Width 18.9 % (11.5-14.5) Platelet Count 105 x10^3/uL (140-400) Sodium Level 140 mmol/L (136-145) Potassium Level 3.6 mmol/L (3.5-5.1) Chloride Level 111 mmol/L (98-107) Carbon Dioxide Level 22 mmol/L (21-32) Anion Gap 7 (6-14) Blood Urea Nitrogen 31 mg/dL (8-26) Creatinine 1.0 mg/dL (0.7-1.3) Estimated GFR (Cockcroft-Gault) 76.0 Glucose Level 92 mg/dL (70-99) Calcium Level 7.1 mg/dL (8.5-10.1) Medications Current Medications Ondansetron HCl (Zofran) 4 mg 1X ONCE IV Last administered on 03/29/18at 03:18 ; Start 03/29/18 at 03:15; Stop 03/29/18 at 03:16; Status DC Sodium Chloride 1,000 ml @ 1,000 mls/hr 1X ONCE IV Last administered on at 03:17; Start 03/29/18 at 03:15; Stop 03/29/18 at 04:14; Status DC Pantoprazole Sodium (PROTONIX VIAL for IV PUSH) 40 mg 1X ONCE IVP Last administered on 03/29/18at 03:17; Start 03/29/18 at 03:15; Stop 03/29/18 at 03:16 ; Status DC Octreotide Acetate 500 mcg/ Sodium Chloride 101 ml @ 0 mls/hr CONT PRN IV SEE I /O RECORD Last administered on 03/29/18at 22:07; Start 03/29/18 at 03:15; Stop at 12:26; Status DC Pantoprazole Sodium 80 mg/ Sodium Chloride 100 ml @ 10 mls/hr 1X ONCE IV Last administered on 03/29/18at 03:46; Start 03/29/18 at 03:15; Stop 03/29/18 at 13:14; Status DC Ceftriaxone Sodium 50 ml @ 100 mls/hr 1X ONCE IV Last administered on at 03:15; Start 03/29/18 at 03:15; Stop 03/29/18 at 03:44; Status DC Ondansetron HCl (Zofran) 4 mg PRN Q8HRS PRN IV NAUSEA/VOMITING; Start 03/29/18 at 04:30; Stop 03/30/18 at 04:29; Status DC Norepinephrine Bitartrate 250 ml @ 0 mls/hr 1X ONCE IV ; Start 03/29/18 at 04: 30; Stop 03/29/18 at 04:42; Status DC Sodium Chloride 1,000 ml @ 1,000 mls/hr 1X ONCE IV Last administered on at 04:30; Start 03/29/18 at 04:30; Stop 03/29/18 at 05:29; Status DC Sodium Chloride 500 ml @ 500 mls/hr 1X ONCE IV Last administered on at 12:15; Start 03/29/18 at 12:15; Stop 03/29/18 at 13:14; Status DC Zolpidem Tartrate (Ambien) 5 mg PRN QHS PRN PO INSOMNIA Last administered on 07/05at 22:10; Start 03/29/18 at 13:00 Propofol 20 ml @ As Directed STK-MED ONCE IV ; Start 03/29/18 at 12:59; Stop 06/05 at 13:00; Status DC Pantoprazole Sodium 80 mg/ Sodium Chloride 100 ml @ 10 mls/hr Q10H IV Last administered on 03/30/18at 09:30; Start 03/29/18 at 14:00; Stop 03/30/18 at 12:26 ; Status DC Sodium Chloride 1,000 ml @ 100 mls/hr Q10H IV Last administered on 03/30/18at 18:38; Start 03/29/18 at 17:00; Stop 03/30/18 at 19:48; Status DC Pantoprazole Sodium (Protonix) 40 mg DAILYAC PO Last administered on 03/31/18at 08:11; Start 03/31/18 at 07:30 Acetaminophen (Tylenol) 500 mg PRN Q6HRS PRN PO MILD PAIN / TEMP; Start at 09:15 Ondansetron HCl (Zofran) 4 mg PRN Q6HRS PRN IV NAUSEA/VOMITING; Start 03/31/18 at 09:15 Ondansetron HCl (Zofran Odt) 4 mg PRN Q6HRS PRN PO NAUSEA/VOMITING; Start 03/31 at 09:15 Active Scripts Active [Pantoprazole] 40 MG Tablet.dr 40 Mg PO BIDAC 60 Days Vitals/I & O Vital Sign - Last 24 Hours 03/30/18 03/30/18 03/30/18 03/30/18 12:00 13:00 14:00 16:00 Temp 97.1 98.1 97.1 98.1 Pulse 64 74 68 72 Resp 19 19 19 16 B/P (MAP) 99/64 (76) 90/58 (69) 97/57 (70) 100/67 (78) Pulse Ox 95 95 95 93 O2 Delivery Room Air Room Air Room Air Room Air 03/30/18 03/30/18 03/30/18 03/31/18 19:00 20:00 23:00 03:00 Temp 97.9 98.6 98.7 97.9 98.6 98.7 Pulse 80 76 79 Resp 15 16 16 B/P (MAP) 104/63 (77) 111/67 (82) 119/69 (86) Pulse Ox 97 98 97 O2 Delivery Room Air Room Air Room Air Room Air 03/31/18 03/31/18 03/31/18 07:00 08:00 11:00 Temp 99.3 100.2 99.3 100.2 Pulse 79 79 Resp 20 20 B/P (MAP) 120/53 (75) 112/75 (87) Pulse Ox 92 94 O2 Delivery Room Air Room Air Room Air Intake and Output 03/30/18 03/30/18 03/31/18 15:00 23:00 07:00 Intake Total 300 ml Output Total 250 ml 0 ml Balance -250 ml 300 ml 0 ml Nutrition Consultation Dietary Evaluation: Recommendations by RD: Increase Calorie Intake Comments: REC advance diet if able per GI within 24-48 hours, goal diet low-sodium, high protein If unable to advance diet recommend PPN for short-term nutrition needs while awaiting diet advancement Expected Outcomes/Goals: Diet advancement Interpretation of weight loss: >5% in 1 month Malnutrition Findings: Food and Nutrition Intake (Mod: <75% est energy req 7days Weight Status: Appropriate AMANDEEP BIRD MD Mar 31, 2018 11:43
[2018-03-31] MEDS ORDERED: PIP/TAZO PER PHARMACY MC PRN (11:45)
--- NOTE | 2018-03-31 11:48 | PDOC ---
Subjective: Subjective: No bleeding, feels okay. Objective: Objective: RN called - daughter wants to know if he can eat more. Vital Signs: Vital Signs Date Time Temp Pulse Resp B/P (MAP) Pulse Ox O2 Delivery O2 Flow Rate FiO2 03/31/18 11:00 100.2 79 20 112/75 (87) 94 Room Air 100.2 Labs: Laboratory Tests Test 03/31/18 04:25 White Blood Count 6.7 x10^3/uL Red Blood Count 3.02 x10^6/uL Hemoglobin 8.2 g/dL Hematocrit 24.6 % Mean Corpuscular Volume 81 fL Mean Corpuscular Hemoglobin 27 pg Mean Corpuscular Hemoglobin Concent 33 g/dL Red Cell Distribution Width 18.9 % Platelet Count 105 x10^3/uL Sodium Level 140 mmol/L Potassium Level 3.6 mmol/L Chloride Level 111 mmol/L Carbon Dioxide Level 22 mmol/L Anion Gap 7 Blood Urea Nitrogen 31 mg/dL Creatinine 1.0 mg/dL Estimated GFR (Cockcroft-Gault) 76.0 Glucose Level 92 mg/dL Calcium Level 7.1 mg/dL PE: GEN: NAD LUNGS: CTAB HEART: RRR ABD: a bit more distended than yesterday but not tight, non-tender NEURO/PSYCH: A & O 3, quiet A/P: Hematemesis - resolved, EGD w/ clot, Hgb stable Cirrhosis and ascites w/ Hep C Fever -- Advance to full liquids. ROSA MARIA GILES Mar 31, 2018 11:48
[2018-03-31] MEDS: ACETAMINOPHEN 500 MG TABLET PO PRN ×2 (13:12→23:25)
--- NOTE | 2018-03-31 13:44 | RAD ---
AP and Lateral Views of the Chest 03/31/2018 1:19 PM Indication: FEVER Comparison: Chest radiograph February 13, 2018 Findings: No pneumothorax is identified. There are small bilateral pleural effusions. Heart size is normal. Linear opacities in the left lung base suggest underlying discoid atelectasis. No acute osseous abnormalities identified. IMPRESSION: Small bilateral pleural effusions. Underlying atelectasis, particularly in the left lung base. Electronically signed by: Lance Levin MD (03/31/2018 1:40 PM) [id number]
[2018-03-31] MEDS: PIPERACILLIN/TAZOBACTAM 3.375 GM in IV NORMAL SALINE 50ML 50 ML IV SCH ×2 (14:53→19:59)
[2018-03-31 15:00] VITALS: BP 108/73
[2018-03-31 19:00] VITALS: BP 116/77
--- NOTE | 2018-03-31 19:15 | PDOC2 ---
PALLIATIVE CARE Palliative Care Note Palliative Care Consult requested by Dr. Garcia to address recommendation for Hospice. 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 Spoke with patient and daughter Autumn. Reviewed medical condition as above. Autumn states they have an appointment at [facility] for evaluation. Has been told that "this will be a long process" Adamant about full aggressive care and full code. Daughter requests more information from physicians. Family not interested in discussing option of Hospice. DANNY ALMEIDA Mar 31, 2018 19:15
[2018-03-31] MEDS: ZOLPIDEM 5 MG TABLET. PO PRN (21:26)
[2018-03-31] MEDS: LACTOBACILLUS RHAMNOSUS GG 1 CAPSULE. PO SCH (21:26)
[2018-03-31 23:00] VITALS: BP 125/69
[2018-04-01 00:35] LABS: BILIRUBIN,URINE SMALL (NEG); CLARITY,URINE CLEAR; COLOR,URINE AMBER; NITRITE,URINE NEGATIVE (NEG); PH,URINE 5.5; PROTEIN,URINE NEGATIVE (NEG-TRACE)
[2018-04-01 00:44] LABS: BACTERIA,URINE 0 /HPF (0-FEW); RBC,URINE OCC /HPF (0-2); SQUAMOUS EPITHELIAL CELL,UR OCC /LPF; WBC,URINE OCC /HPF (0-4)
[2018-04-01] MEDS: PIPERACILLIN/TAZOBACTAM 3.375 GM in IV NORMAL SALINE 50ML 50 ML IV SCH ×5 (01:09→23:00)
[2018-04-01 03:00] VITALS: BP 133/74
[2018-04-01 04:28] LABS: BASO # 0.1 x10^3/uL (0.0-0.2); BASO % 1 % (0-3); EOS # 0.1 x10^3/uL (0.0-0.7); EOS % 2 % (0-3); HEMATOCRIT 24.8 % (39.0-53.0); HEMOGLOBIN 8.4 g/dL (13.0-17.5); LYMPH # 1.4 x10^3/uL (1.0-4.8); LYMPH % 17 % (24-48); MEAN CORPUSCULAR HEMOGLOBIN 27 pg (25-35); MEAN CORPUSCULAR HGB CONC 34 g/dL (31-37); MEAN CORPUSCULAR VOLUME 80 fL (79-100); MONO # 1.2 x10^3/uL (0.0-1.1); MONO % 15 % (0-9); NEUT # 5.5 x10^3uL (1.8-7.7); NEUT % 66 % (31-73); PLATELET COUNT 105 x10^3/uL (140-400); RED BLOOD COUNT 3.09 x10^6/uL (4.30-5.70); RED CELL DISTRIBUTION WIDTH 18.7 % (11.5-14.5); WHITE BLOOD COUNT 8.3 x10^3/uL (4.0-11.0)
[2018-04-01 07:00] VITALS: BP 116/77
[2018-04-01] MEDS: LACTOBACILLUS RHAMNOSUS GG 1 CAPSULE. PO SCH ×2 (08:50→19:56)
[2018-04-01] MEDS: PANTOPRAZOLE 40 MG TABLET.DR. PO SCH (08:50)
[2018-04-01] MEDS ORDERED: LACT1CAP19 PO (08:56)
[2018-04-01] MEDS ORDERED: Pantoprazole PO (08:56)
[2018-04-01] MEDS ORDERED: ONDA4TAB10 SL (08:56)
[2018-04-01] MEDS ORDERED: AMOX1TAB61 PO (08:57)
[2018-04-01] MEDS: ACETAMINOPHEN 500 MG TABLET PO PRN ×2 (10:22→23:00)
--- NOTE | 2018-04-01 11:44 | PDOC ---
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 Inc AFP (126) no liver mass History of Present Illness History of Present Illness transferred out of ICU 03/30/18 NO fevers BUt now seeping fluid constantly from the paracentesis site -clear fluid SOme abd pain today AFP elevated but no liver mass on imaging albumin 1.8 NO more hematemesis HAs ff up with hepatology clinic Appreciate PAT, family not ready for hospice PLAN: Albumin 50 gms now Hold discharge PACk that seeping fluid Inform IR of post paracentesis complication Check an abdominal ultrasound again, see if there is any recurrence of fluid that needs to be Before he goes home sometime this weekend Overall prognosis poor, discussed with GI, CHeck INR in case paracentesis again On reg diet unless paracentesis again Dw GI Vitals Vitals Vital Signs Date Time Temp Pulse Resp B/P (MAP) Pulse Ox O2 Delivery O2 Flow Rate FiO2 04/01/18 08:00 Room Air 04/01/18 07:00 97.7 99 18 116/77 (90) 95 97.7 Physical Exam General: Cooperative, No acute distress Heart: Regular rate, Normal S1, Normal S2 Lungs: Clear Abdomen: Normal bowel sounds, Soft Extremities: No clubbing, No cyanosis Skin: No rashes, No breakdown Labs LABS Laboratory Tests Test 03/31/18 22:30 04/01/18 03:15 Urine Collection Type Unknown Urine Color Tonie Urine Clarity Clear Urine pH 5.5 Urine Specific [place] >=1.030 Urine Protein Negative mg/dL (NEG-TRACE) Urine Glucose (UA) Negative mg/dL (NEG) Urine Ketones (Stick) Trace mg/dL (NEG) Urine Blood Negative (NEG) Urine Nitrite Negative (NEG) Urine Bilirubin Small (NEG) Urine Urobilinogen Dipstick 1.0 mg/dL (0.2 mg/dL) Urine Leukocyte Esterase Negative (NEG) Urine RBC Occ /HPF (0-2) Urine WBC Occ /HPF (0-4) Urine Squamous Epithelial Cells Occ /LPF Urine Bacteria 0 /HPF (0-FEW) Urine Mucus Slight /LPF White Blood Count 8.3 x10^3/uL (4.0-11.0) Red Blood Count 3.09 x10^6/uL (4.30-5.70) Hemoglobin 8.4 g/dL (13.0-17.5) Hematocrit 24.8 % (39.0-53.0) Mean Corpuscular Volume 80 fL (79-100) Mean Corpuscular Hemoglobin 27 pg (25-35) Mean Corpuscular Hemoglobin Concent 34 g/dL (31-37) Red Cell Distribution Width 18.7 % (11.5-14.5) Platelet Count 105 x10^3/uL (140-400) Neutrophils (%) (Auto) 66 % (31-73) Lymphocytes (%) (Auto) 17 % (24-48) Monocytes (%) (Auto) 15 % (0-9) Eosinophils (%) (Auto) 2 % (0-3) Basophils (%) (Auto) 1 % (0-3) Neutrophils # (Auto) 5.5 x10^3uL (1.8-7.7) Lymphocytes # (Auto) 1.4 x10^3/uL (1.0-4.8) Monocytes # (Auto) 1.2 x10^3/uL (0.0-1.1) Eosinophils # (Auto) 0.1 x10^3/uL (0.0-0.7) Basophils # (Auto) 0.1 x10^3/uL (0.0-0.2) Review of Systems Review of Systems abd pain, weak, seeping fluid, the rest of ROS 14 point negative Assessment and Plan Assessmemt and Plan Problems Medical Problems: (1) Anemia due to blood loss Status: Acute (2) Hypotension Status: Acute Comment Review of Relevant I have reviewed the following items sushant (where applicable) has been applied. Labs Laboratory Tests Test 03/31/18 04:25 03/31/18 22:30 04/01/18 03:15 White Blood Count 6.7 x10^3/uL (4.0-11.0) 8.3 x10^3/uL (4.0-11.0) Red Blood Count 3.02 x10^6/uL (4.30-5.70) 3.09 x10^6/uL (4.30-5.70) Hemoglobin 8.2 g/dL (13.0-17.5) 8.4 g/dL (13.0-17.5) Hematocrit 24.6 % (39.0-53.0) 24.8 % (39.0-53.0) Mean Corpuscular Volume 81 fL (79-100) 80 fL (79-100) Mean Corpuscular Hemoglobin 27 pg (25-35) 27 pg (25-35) Mean Corpuscular Hemoglobin Concent 33 g/dL (31-37) 34 g/dL (31-37) Red Cell Distribution Width 18.9 % (11.5-14.5) 18.7 % (11.5-14.5) Platelet Count 105 x10^3/uL (140-400) 105 x10^3/uL (140-400) Sodium Level 140 mmol/L (136-145) Potassium Level 3.6 mmol/L (3.5-5.1) Chloride Level 111 mmol/L (98-107) Carbon Dioxide Level 22 mmol/L (21-32) Anion Gap 7 (6-14) Blood Urea Nitrogen 31 mg/dL (8-26) Creatinine 1.0 mg/dL (0.7-1.3) Estimated GFR (Cockcroft-Gault) 76.0 Glucose Level 92 mg/dL (70-99) Calcium Level 7.1 mg/dL (8.5-10.1) Albumin 1.8 g/dL (3.4-5.0) Urine Collection Type Unknown Urine Color Tonie Urine Clarity Clear Urine pH 5.5 Urine Specific [place] >=1.030 Urine Protein Negative mg/dL (NEG-TRACE) Urine Glucose (UA) Negative mg/dL (NEG) Urine Ketones (Stick) Trace mg/dL (NEG) Urine Blood Negative (NEG) Urine Nitrite Negative (NEG) Urine Bilirubin Small (NEG) Urine Urobilinogen Dipstick 1.0 mg/dL (0.2 mg/dL) Urine Leukocyte Esterase Negative (NEG) Urine RBC Occ /HPF (0-2) Urine WBC Occ /HPF (0-4) Urine Squamous Epithelial Cells Occ /LPF Urine Bacteria 0 /HPF (0-FEW) Urine Mucus Slight /LPF Neutrophils (%) (Auto) 66 % (31-73) Lymphocytes (%) (Auto) 17 % (24-48) Monocytes (%) (Auto) 15 % (0-9) Eosinophils (%) (Auto) 2 % (0-3) Basophils (%) (Auto) 1 % (0-3) Neutrophils # (Auto) 5.5 x10^3uL (1.8-7.7) Lymphocytes # (Auto) 1.4 x10^3/uL (1.0-4.8) Monocytes # (Auto) 1.2 x10^3/uL (0.0-1.1) Eosinophils # (Auto) 0.1 x10^3/uL (0.0-0.7) Basophils # (Auto) 0.1 x10^3/uL (0.0-0.2) Laboratory Tests Test 03/31/18 22:30 04/01/18 03:15 Urine Collection Type Unknown Urine Color Tonie Urine Clarity Clear Urine pH 5.5 Urine Specific [place] >=1.030 Urine Protein Negative mg/dL (NEG-TRACE) Urine Glucose (UA) Negative mg/dL (NEG) Urine Ketones (Stick) Trace mg/dL (NEG) Urine Blood Negative (NEG) Urine Nitrite Negative (NEG) Urine Bilirubin Small (NEG) Urine Urobilinogen Dipstick 1.0 mg/dL (0.2 mg/dL) Urine Leukocyte Esterase Negative (NEG) Urine RBC Occ /HPF (0-2) Urine WBC Occ /HPF (0-4) Urine Squamous Epithelial Cells Occ /LPF Urine Bacteria 0 /HPF (0-FEW) Urine Mucus Slight /LPF White Blood Count 8.3 x10^3/uL (4.0-11.0) Red Blood Count 3.09 x10^6/uL (4.30-5.70) Hemoglobin 8.4 g/dL (13.0-17.5) Hematocrit 24.8 % (39.0-53.0) Mean Corpuscular Volume 80 fL (79-100) Mean Corpuscular Hemoglobin 27 pg (25-35) Mean Corpuscular Hemoglobin Concent 34 g/dL (31-37) Red Cell Distribution Width 18.7 % (11.5-14.5) Platelet Count 105 x10^3/uL (140-400) Neutrophils (%) (Auto) 66 % (31-73) Lymphocytes (%) (Auto) 17 % (24-48) Monocytes (%) (Auto) 15 % (0-9) Eosinophils (%) (Auto) 2 % (0-3) Basophils (%) (Auto) 1 % (0-3) Neutrophils # (Auto) 5.5 x10^3uL (1.8-7.7) Lymphocytes # (Auto) 1.4 x10^3/uL (1.0-4.8) Monocytes # (Auto) 1.2 x10^3/uL (0.0-1.1) Eosinophils # (Auto) 0.1 x10^3/uL (0.0-0.7) Basophils # (Auto) 0.1 x10^3/uL (0.0-0.2) Medications Current Medications Ondansetron HCl (Zofran) 4 mg 1X ONCE IV Last administered on 03/29/18at 03:18 ; Start 03/29/18 at 03:15; Stop 03/29/18 at 03:16; Status DC Sodium Chloride 1,000 ml @ 1,000 mls/hr 1X ONCE IV Last administered on at 03:17; Start 03/29/18 at 03:15; Stop 03/29/18 at 04:14; Status DC Pantoprazole Sodium (PROTONIX VIAL for IV PUSH) 40 mg 1X ONCE IVP Last administered on 03/29/18at 03:17; Start 03/29/18 at 03:15; Stop 03/29/18 at 03:16 ; Status DC Octreotide Acetate 500 mcg/ Sodium Chloride 101 ml @ 0 mls/hr CONT PRN IV SEE I /O RECORD Last administered on 03/29/18at 22:07; Start 03/29/18 at 03:15; Stop at 12:26; Status DC Pantoprazole Sodium 80 mg/ Sodium Chloride 100 ml @ 10 mls/hr 1X ONCE IV Last administered on 03/29/18at 03:46; Start 03/29/18 at 03:15; Stop 03/29/18 at 13:14; Status DC Ceftriaxone Sodium 50 ml @ 100 mls/hr 1X ONCE IV Last administered on at 03:15; Start 03/29/18 at 03:15; Stop 03/29/18 at 03:44; Status DC Ondansetron HCl (Zofran) 4 mg PRN Q8HRS PRN IV NAUSEA/VOMITING; Start 03/29/18 at 04:30; Stop 03/30/18 at 04:29; Status DC Norepinephrine Bitartrate 250 ml @ 0 mls/hr 1X ONCE IV ; Start 03/29/18 at 04: 30; Stop 03/29/18 at 04:42; Status DC Sodium Chloride 1,000 ml @ 1,000 mls/hr 1X ONCE IV Last administered on at 04:30; Start 03/29/18 at 04:30; Stop 03/29/18 at 05:29; Status DC Sodium Chloride 500 ml @ 500 mls/hr 1X ONCE IV Last administered on at 12:15; Start 03/29/18 at 12:15; Stop 03/29/18 at 13:14; Status DC Zolpidem Tartrate (Ambien) 5 mg PRN QHS PRN PO INSOMNIA Last administered on at 21:26; Start 03/29/18 at 13:00 Propofol 20 ml @ As Directed STK-MED ONCE IV ; Start 03/29/18 at 12:59; Stop 06/05 at 13:00; Status DC Pantoprazole Sodium 80 mg/ Sodium Chloride 100 ml @ 10 mls/hr Q10H IV Last administered on 03/30/18at 09:30; Start 03/29/18 at 14:00; Stop 03/30/18 at 12:26 ; Status DC Sodium Chloride 1,000 ml @ 100 mls/hr Q10H IV Last administered on 03/30/18at 18:38; Start 03/29/18 at 17:00; Stop 03/30/18 at 19:48; Status DC Pantoprazole Sodium (Protonix) 40 mg DAILYAC PO Last administered on 04/01/18at 08:50; Start 03/31/18 at 07:30 Acetaminophen (Tylenol) 500 mg PRN Q6HRS PRN PO MILD PAIN / TEMP Last administered on 04/01/18at 10:22; Start 03/31/18 at 09:15 Ondansetron HCl (Zofran) 4 mg PRN Q6HRS PRN IV NAUSEA/VOMITING; Start 03/31/18 at 09:15 Ondansetron HCl (Zofran Odt) 4 mg PRN Q6HRS PRN PO NAUSEA/VOMITING; Start 03/31 at 09:15 Piperacillin Sod/ Tazobactam Sod (Zosyn Per Pharmacy) 1 each PRN DAILY PRN MC SEE COMMENTS; Start 03/31/18 at 11:45 Piperacillin Sod/ Tazobactam Sod 3.375 gm/Sodium Chloride 50 ml @ 100 mls/hr Q6HRS IV Last administered on 04/01/18at 06:01; Start 03/31/18 at 12:00 Lactobacillus Rhamnosus (Culturelle) 1 cap BID PO Last administered on at 08:50; Start 03/31/18 at 21:00 Active Scripts Active Augmentin 875-125 Tablet (Amoxicillin/Potassium Clav) 1 Each Tablet 1 Tab PO BID Zofran Odt (Ondansetron) 4 Mg Tab.rapdis 1 Tab SL Q8HRS Culturelle (Lactobacillus Rhamnosus Gg) 1 Each Cap.sprink 1 Cap PO BID 14 Days or eat yogurt everyday [Pantoprazole] 40 MG Tablet. 40 Mg PO DAILYAC 60 Days [Pantoprazole] 40 MG Tablet.dr 40 Mg PO BIDAC 60 Days Vitals/I & O Vital Sign - Last 24 Hours 03/31/18 03/31/18 03/31/18 03/31/18 15:00 19:00 20:00 23:00 Temp 99.7 98.2 97.9 99.7 98.2 97.9 Pulse 79 80 81 Resp 20 18 18 B/P (MAP) 108/73 (85) 116/77 (90) 125/69 (87) Pulse Ox 94 92 94 O2 Delivery Room Air Room Air Room Air Room Air 04/01/18 04/01/18 04/01/18 03:00 07:00 08:00 Temp 98.2 97.7 98.2 97.7 Pulse 89 99 Resp 18 18 B/P (MAP) 133/74 (93) 116/77 (90) Pulse Ox 94 95 O2 Delivery Room Air Room Air Room Air Intake and Output 03/31/18 03/31/18 04/01/18 15:00 23:00 07:00 Intake Total 480 ml 600 ml 0 ml Output Total 400 ml Balance 480 ml 200 ml 0 ml Nutrition Consultation Dietary Evaluation: Recommendations by RD: Increase Calorie Intake Comments: REC advance diet if able per GI within 24-48 hours, goal diet low-sodium, high protein If unable to advance diet recommend PPN for short-term nutrition needs while awaiting diet advancement Expected Outcomes/Goals: Diet advancement Interpretation of weight loss: >5% in 1 month Malnutrition Findings: Food and Nutrition Intake (Mod: <75% est energy req 7days Weight Status: Appropriate AMANDEEP BIRD MD Apr 01, 2018 11:44
[2018-04-01 11:47] VITALS: BP 130/80
--- NOTE | 2018-04-01 12:23 | PDOC ---
Subjective: Subjective: Daughter says he ate some breakfast, worried about fluid. Objective: Vital Signs: Vital Signs Date Time Temp Pulse Resp B/P (MAP) Pulse Ox O2 Delivery O2 Flow Rate FiO2 04/01/18 11:47 98.2 92 18 130/80 (97) 95 Room Air 98.2 Labs: Laboratory Tests Test 03/31/18 22:30 04/01/18 03:15 Urine Collection Type Unknown Urine Color Tonie Urine Clarity Clear Urine pH 5.5 Urine Specific [place] >=1.030 Urine Protein Negative mg/dL Urine Glucose (UA) Negative mg/dL Urine Ketones (Stick) Trace mg/dL Urine Blood Negative Urine Nitrite Negative Urine Bilirubin Small Urine Urobilinogen Dipstick 1.0 mg/dL Urine Leukocyte Esterase Negative Urine RBC Occ /HPF Urine WBC Occ /HPF Urine Squamous Epithelial Cells Occ /LPF Urine Bacteria 0 /HPF Urine Mucus Slight /LPF White Blood Count 8.3 x10^3/uL Red Blood Count 3.09 x10^6/uL Hemoglobin 8.4 g/dL Hematocrit 24.8 % Mean Corpuscular Volume 80 fL Mean Corpuscular Hemoglobin 27 pg Mean Corpuscular Hemoglobin Concent 34 g/dL Red Cell Distribution Width 18.7 % Platelet Count 105 x10^3/uL Neutrophils (%) (Auto) 66 % Lymphocytes (%) (Auto) 17 % Monocytes (%) (Auto) 15 % Eosinophils (%) (Auto) 2 % Basophils (%) (Auto) 1 % Neutrophils # (Auto) 5.5 x10^3uL Lymphocytes # (Auto) 1.4 x10^3/uL Monocytes # (Auto) 1.2 x10^3/uL Eosinophils # (Auto) 0.1 x10^3/uL Basophils # (Auto) 0.1 x10^3/uL Imaging: CXR 03/31 IMPRESSION: Small bilateral pleural effusions. Underlying atelectasis, particularly in the left lung base. PE: GEN: weak LUNGS: CTAB HEART: RRR ABD: distended/tighter - dressing on right dry for now NEURO/PSYCH: A & O 3, drowsy A/P: Hematemesis - resolved, EGD w/ clot, Hgb stable Cirrhosis and ascites w/ Hep C/alcohol and elevated AFP, s/p paracentesis x3 -- D/w Dr. Garcia - abd leakage from previous paracentesis, US ordered and giving albumin, family says came to [facility] because they are [place]. Reviewed PC note - no Hospice. Additional recs per Dr. Klein. ROSA MARIA GILES Apr 01, 2018 12:23
[2018-04-01] MEDS: ALBUMIN HUMAN 25% 100 ML IV SCH ×2 (13:00→15:55)
[2018-04-01 15:37] VITALS: BP 103/58
--- NOTE | 2018-04-01 16:02 | RAD ---
EXAM: Abdomen sonogram. HISTORY: Ascites. TECHNIQUE: Sonographic imaging of the abdomen was performed. COMPARISON: CT dated 02/13/2018. FINDINGS: There is moderate abdominal ascites. The ascites pockets measure 6.7 cm in depth in the right upper quadrant, 7.5 cm in depth in the left upper quadrant, 3.7 cm in depth in the right lower quadrant, 10.4 cm in depth within the left lower quadrant and 4.9 cm in depth within the lower midline abdomen. There is partial visualization of a cirrhotic liver. The remainder of the abdominal structures are not formally assessed. IMPRESSION: 1. Moderate abdominal ascites. 2. Hepatic cirrhosis. No is made that the abdominal visceral and vascular structures are not formally assessed. Electronically signed by: Ivania Maxwell MD (04/01/2018 3:59 PM) [place] [id number]
[2018-04-01 19:00] VITALS: BP 100/64
[2018-04-01 23:00] VITALS: BP 123/72
[2018-04-01] MEDS: ZOLPIDEM 5 MG TABLET. PO PRN (23:00)
[2018-04-02 03:00] VITALS: BP 102/64
[2018-04-02 05:56] LABS: PROTHROMBIN TIME PATIENT 18.6 SEC (11.7-14.0)
[2018-04-02] MEDS: PIPERACILLIN/TAZOBACTAM 3.375 GM in IV NORMAL SALINE 50ML 50 ML IV SCH ×4 (06:05→23:06)
[2018-04-02 07:30] VITALS: BP 93/54
[2018-04-02] MEDS: PANTOPRAZOLE 40 MG TABLET.DR. PO SCH (08:39)
[2018-04-02] MEDS: LACTOBACILLUS RHAMNOSUS GG 1 CAPSULE. PO SCH ×2 (08:39→21:19)
[2018-04-02 11:00] VITALS: BP 105/66
--- NOTE | 2018-04-02 11:10 | PDOC ---
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 Inc AFP (126) no liver mass History of Present Illness History of Present Illness transferred out of ICU 03/30/18 NO fevers BUt now seeping fluid constantly from the paracentesis site -clear fluid SOme abd pain AFP elevated but no liver mass on imaging albumin 2.3 from 1.3 after 50 g of albumin on 04/01/18 Abdominal fluid from the paracentesis site is still oozing, dressings are soaked NO more hematemesis HAs ff up with hepatology clinic apr 14 Appreciate PAT, family not ready for hospice PLAN: s/p Albumin 50 gms Interval US of the abdomen, moderate ascites-after discussion with family, we opted to keep the patient over the weekend and go for paracentesis again on Wednesday before discharging on Wednesday To keep [facility] hepatology's appointment Overall prognosis is poor, he has been sober for a few months, no hematemesis from Lisa-Hurst tear FAm Not ready for hospice Dw GI and family Vitals Vitals Vital Signs Date Time Temp Pulse Resp B/P (MAP) Pulse Ox O2 Delivery O2 Flow Rate FiO2 04/02/18 07:30 97.9 78 18 93/54 (67) 95 97.9 04/01/18 23:00 Room Air Physical Exam General: Cooperative, No acute distress Heart: Regular rate, Normal S1, Normal S2 Lungs: Clear Abdomen: Normal bowel sounds, Soft Extremities: No clubbing, No cyanosis Skin: No rashes, No breakdown Labs LABS Laboratory Tests Test 04/02/18 04:40 Prothrombin Time 18.6 SEC (11.7-14.0) Prothromb Time International Ratio 1.6 (0.8-1.1) Albumin 2.5 g/dL (3.4-5.0) Review of Systems Review of Systems as per The rest of ROS 14 point negative Assessment and Plan Assessmemt and Plan Problems Medical Problems: (1) Anemia due to blood loss Status: Acute (2) Hypotension Status: Acute Comment Review of Relevant I have reviewed the following items sushant (where applicable) has been applied. Labs Laboratory Tests Test 03/31/18 19:38 03/31/18 22:30 04/01/18 03:15 04/02/18 04:40 Body Fluid Albumin 0.4 g/dL (.) Urine Collection Type Unknown Urine Color Tonie Urine Clarity Clear Urine pH 5.5 Urine Specific Bonnie >=1.030 Urine Protein Negative mg/dL (NEG-TRACE) Urine Glucose (UA) Negative mg/dL (NEG) Urine Ketones (Stick) Trace mg/dL (NEG) Urine Blood Negative (NEG) Urine Nitrite Negative (NEG) Urine Bilirubin Small (NEG) Urine Urobilinogen Dipstick 1.0 mg/dL (0.2 mg/dL) Urine Leukocyte Esterase Negative (NEG) Urine RBC Occ /HPF (0-2) Urine WBC Occ /HPF (0-4) Urine Squamous Epithelial Cells Occ /LPF Urine Bacteria 0 /HPF (0-FEW) Urine Mucus Slight /LPF White Blood Count 8.3 x10^3/uL (4.0-11.0) Red Blood Count 3.09 x10^6/uL (4.30-5.70) Hemoglobin 8.4 g/dL (13.0-17.5) Hematocrit 24.8 % (39.0-53.0) Mean Corpuscular Volume 80 fL (79-100) Mean Corpuscular Hemoglobin 27 pg (25-35) Mean Corpuscular Hemoglobin Concent 34 g/dL (31-37) Red Cell Distribution Width 18.7 % (11.5-14.5) Platelet Count 105 x10^3/uL (140-400) Neutrophils (%) (Auto) 66 % (31-73) Lymphocytes (%) (Auto) 17 % (24-48) Monocytes (%) (Auto) 15 % (0-9) Eosinophils (%) (Auto) 2 % (0-3) Basophils (%) (Auto) 1 % (0-3) Neutrophils # (Auto) 5.5 x10^3uL (1.8-7.7) Lymphocytes # (Auto) 1.4 x10^3/uL (1.0-4.8) Monocytes # (Auto) 1.2 x10^3/uL (0.0-1.1) Eosinophils # (Auto) 0.1 x10^3/uL (0.0-0.7) Basophils # (Auto) 0.1 x10^3/uL (0.0-0.2) Prothrombin Time 18.6 SEC (11.7-14.0) Prothromb Time International Ratio 1.6 (0.8-1.1) Albumin 2.5 g/dL (3.4-5.0) Laboratory Tests Test 04/02/18 04:40 Prothrombin Time 18.6 SEC (11.7-14.0) Prothromb Time International Ratio 1.6 (0.8-1.1) Albumin 2.5 g/dL (3.4-5.0) Microbiology 03/31/18 Blood Culture - Preliminary, Resulted NO GROWTH AFTER 1 DAY 03/31/18 Aerobic Culture, Resulted Pending 03/31/18 Aerobic Culture Result 1 (MAO), Resulted Pending 03/31/18 Gram Stain - Final, Resulted 03/31/18 Gram Stain Result 1 (MAO) - Final, Resulted 03/31/18 Gram Stain Result 2 (MAO) - Final, Resulted Medications Current Medications Ondansetron HCl (Zofran) 4 mg 1X ONCE IV Last administered on 03/29/18at 03:18 ; Start 03/29/18 at 03:15; Stop 03/29/18 at 03:16; Status DC Sodium Chloride 1,000 ml @ 1,000 mls/hr 1X ONCE IV Last administered on at 03:17; Start 03/29/18 at 03:15; Stop 03/29/18 at 04:14; Status DC Pantoprazole Sodium (PROTONIX VIAL for IV PUSH) 40 mg 1X ONCE IVP Last administered on 03/29/18at 03:17; Start 03/29/18 at 03:15; Stop 03/29/18 at 03:16 ; Status DC Octreotide Acetate 500 mcg/ Sodium Chloride 101 ml @ 0 mls/hr CONT PRN IV SEE I /O RECORD Last administered on 03/29/18at 22:07; Start 03/29/18 at 03:15; Stop at 12:26; Status DC Pantoprazole Sodium 80 mg/ Sodium Chloride 100 ml @ 10 mls/hr 1X ONCE IV Last administered on 03/29/18at 03:46; Start 03/29/18 at 03:15; Stop 03/29/18 at 13:14; Status DC Ceftriaxone Sodium 50 ml @ 100 mls/hr 1X ONCE IV Last administered on at 03:15; Start 03/29/18 at 03:15; Stop 03/29/18 at 03:44; Status DC Ondansetron HCl (Zofran) 4 mg PRN Q8HRS PRN IV NAUSEA/VOMITING; Start 03/29/18 at 04:30; Stop 03/30/18 at 04:29; Status DC Norepinephrine Bitartrate 250 ml @ 0 mls/hr 1X ONCE IV ; Start 03/29/18 at 04: 30; Stop 03/29/18 at 04:42; Status DC Sodium Chloride 1,000 ml @ 1,000 mls/hr 1X ONCE IV Last administered on at 04:30; Start 03/29/18 at 04:30; Stop 03/29/18 at 05:29; Status DC Sodium Chloride 500 ml @ 500 mls/hr 1X ONCE IV Last administered on at 12:15; Start 03/29/18 at 12:15; Stop 03/29/18 at 13:14; Status DC Zolpidem Tartrate (Ambien) 5 mg PRN QHS PRN PO INSOMNIA Last administered on at 23:00; Start 03/29/18 at 13:00 Propofol 20 ml @ As Directed STK-MED ONCE IV ; Start 03/29/18 at 12:59; Stop 06/05 at 13:00; Status DC Pantoprazole Sodium 80 mg/ Sodium Chloride 100 ml @ 10 mls/hr Q10H IV Last administered on 03/30/18at 09:30; Start 03/29/18 at 14:00; Stop 03/30/18 at 12:26 ; Status DC Sodium Chloride 1,000 ml @ 100 mls/hr Q10H IV Last administered on 03/30/18at 18:38; Start 03/29/18 at 17:00; Stop 03/30/18 at 19:48; Status DC Pantoprazole Sodium (Protonix) 40 mg DAILYAC PO Last administered on 04/02/18at 08:39; Start 03/31/18 at 07:30 Acetaminophen (Tylenol) 500 mg PRN Q6HRS PRN PO MILD PAIN / TEMP Last administered on 04/01/18at 23:00; Start 03/31/18 at 09:15 Ondansetron HCl (Zofran) 4 mg PRN Q6HRS PRN IV NAUSEA/VOMITING; Start 03/31/18 at 09:15 Ondansetron HCl (Zofran Odt) 4 mg PRN Q6HRS PRN PO NAUSEA/VOMITING; Start 03/31 at 09:15 Piperacillin Sod/ Tazobactam Sod (Zosyn Per Pharmacy) 1 each PRN DAILY PRN MC SEE COMMENTS; Start 03/31/18 at 11:45 Piperacillin Sod/ Tazobactam Sod 3.375 gm/Sodium Chloride 50 ml @ 100 mls/hr Q6HRS IV Last administered on 04/02/18at 06:05; Start 03/31/18 at 12:00 Lactobacillus Rhamnosus (Culturelle) 1 cap BID PO Last administered on at 08:39; Start 03/31/18 at 21:00 Albumin Human 100 ml @ 100 mls/hr Q1H IV Last administered on 04/01/18at 15:55 ; Start 04/01/18 at 11:45; Stop 04/01/18 at 13:44; Status DC Active Scripts Active Augmentin 875-125 Tablet (Amoxicillin/Potassium Clav) 1 Each Tablet 1 Tab PO BID Zofran Odt (Ondansetron) 4 Mg Tab.rapdis 1 Tab SL Q8HRS Culturelle (Lactobacillus Rhamnosus Gg) 1 Each Cap.sprink 1 Cap PO BID 14 Days or eat yogurt everyday [Pantoprazole] 40 MG Tablet. 40 Mg PO DAILYAC 60 Days [Pantoprazole] 40 MG Tablet.dr 40 Mg PO BIDAC 60 Days Vitals/I & O Vital Sign - Last 24 Hours 04/01/18 04/01/18 04/01/18 04/01/18 11:47 15:37 19:00 20:00 Temp 98.2 98.4 98.1 98.2 98.4 98.1 Pulse 92 92 81 Resp 18 18 18 B/P (MAP) 130/80 (97) 103/58 (73) 100/64 (76) Pulse Ox 95 94 95 O2 Delivery Room Air Room Air Room Air Room Air 04/01/18 04/02/18 04/02/18 23:00 03:00 07:30 Temp 98.8 98.1 97.9 98.8 98.1 97.9 Pulse 79 74 78 Resp 18 B/P (MAP) 123/72 (89) 102/64 (77) 93/54 (67) Pulse Ox 95 92 95 O2 Delivery Room Air Intake and Output 04/01/18 04/01/18 04/02/18 15:00 23:00 07:00 Intake Total 100 ml 210 ml Output Total 100 ml 500 ml Balance -100 ml -400 ml 210 ml Nutrition Consultation Dietary Evaluation: Recommendations by RD: Increase Calorie Intake Comments: REC advance diet if able per GI within 24-48 hours, goal diet low-sodium, high protein If unable to advance diet recommend PPN for short-term nutrition needs while awaiting diet advancement Expected Outcomes/Goals: Diet advancement Interpretation of weight loss: >5% in 1 month Malnutrition Findings: Food and Nutrition Intake (Mod: <75% est energy req 7days Weight Status: Appropriate AMANDEEP BIRD MD Apr 02, 2018 11:10
[2018-04-02 15:00] VITALS: BP 98/54
[2018-04-02 19:00] VITALS: BP 111/62
[2018-04-02 22:53] VITALS: BP 109/62
[2018-04-02] MEDS: ACETAMINOPHEN 500 MG TABLET PO PRN (23:06)
[2018-04-02] MEDS: ZOLPIDEM 5 MG TABLET. PO PRN (23:06)
[2018-04-03 03:00] VITALS: BP 106/67
[2018-04-03] MEDS: PIPERACILLIN/TAZOBACTAM 3.375 GM in IV NORMAL SALINE 50ML 50 ML IV SCH ×4 (05:15→23:30)
[2018-04-03 07:00] VITALS: BP 121/78
[2018-04-03] MEDS: PANTOPRAZOLE 40 MG TABLET.DR. PO SCH (08:58)
[2018-04-03] MEDS: LACTOBACILLUS RHAMNOSUS GG 1 CAPSULE. PO SCH ×2 (08:58→21:35)
[2018-04-03 11:00] VITALS: BP 118/77
[2018-04-03] MEDS: ACETAMINOPHEN 500 MG TABLET PO PRN ×2 (11:26→21:35)
--- NOTE | 2018-04-03 11:45 | PDOC ---
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 Inc AFP (126) no liver mass History of Present Illness History of Present Illness Asleep, i did not awaken Seeping abd fluid, ascites again on interval US s.p albumin on wednesday EARLIER ENTRY transferred out of ICU 03/30/18 AFP elevated but no liver mass on imaging NO more hematemesis HAs ff up with hepatology clinic apr 14 Appreciate PAT, family not ready for hospice PLAN: PARACENTESIS WEDNESDAY THEN DC AFTER NPO POST MN Dw GI and family Vitals Vitals Vital Signs Date Time Temp Pulse Resp B/P (MAP) Pulse Ox O2 Delivery O2 Flow Rate FiO2 04/03/18 08:00 Room Air 3.0 04/03/18 07:00 97.9 96 18 121/78 (92) 95 97.9 Physical Exam General: Cooperative, No acute distress Heart: Regular rate, Normal S1, Normal S2 Lungs: Clear Abdomen: Normal bowel sounds, Soft Extremities: No clubbing, No cyanosis Skin: No rashes, No breakdown Review of Systems Review of Systems A 14 point ROS was completed with the following noted as positive: Other systems reviewed and negative. \CONSTITUTIONAL: No fever or chills EYES: No recent changes SKIN: No rash or itching CARDIOVASCULAR: No chest pain, syncope, palpitations, or edema RESPIRATORY: No SOB or cough GASTROINTESTINAL: No nausea, vomiting or abdominal pain NEUROLOGICAL: No headaches or weakness ENDOCRINE: No cold or heat intolerance GENITOURINARY: No urgency or frequency of urination MUSCULOSKELETAL: No back pain or joint pain LYMPHATICS: No enlarged lymph nodes PSYCHIATRIC: No anxiety or depression Assessment and Plan Assessmemt and Plan Problems Medical Problems: (1) Anemia due to blood loss Status: Acute (2) Hypotension Status: Acute Comment Review of Relevant I have reviewed the following items sushant (where applicable) has been applied. Labs Laboratory Tests Test 04/02/18 04:40 Prothrombin Time 18.6 SEC (11.7-14.0) Prothromb Time International Ratio 1.6 (0.8-1.1) Albumin 2.5 g/dL (3.4-5.0) Microbiology 03/31/18 Blood Culture - Preliminary, Resulted NO GROWTH AFTER 2 DAYS 03/31/18 Aerobic Culture, Resulted Pending 03/31/18 Aerobic Culture Result 1 (MAO), Resulted Pending 03/31/18 Gram Stain - Final, Resulted 03/31/18 Gram Stain Result 1 (MAO) - Final, Resulted 03/31/18 Gram Stain Result 2 (MAO) - Final, Resulted Medications Current Medications Ondansetron HCl (Zofran) 4 mg 1X ONCE IV Last administered on 03/29/18at 03:18 ; Start 03/29/18 at 03:15; Stop 03/29/18 at 03:16; Status DC Sodium Chloride 1,000 ml @ 1,000 mls/hr 1X ONCE IV Last administered on at 03:17; Start 03/29/18 at 03:15; Stop 03/29/18 at 04:14; Status DC Pantoprazole Sodium (PROTONIX VIAL for IV PUSH) 40 mg 1X ONCE IVP Last administered on 03/29/18at 03:17; Start 03/29/18 at 03:15; Stop 03/29/18 at 03:16 ; Status DC Octreotide Acetate 500 mcg/ Sodium Chloride 101 ml @ 0 mls/hr CONT PRN IV SEE I /O RECORD Last administered on 03/29/18at 22:07; Start 03/29/18 at 03:15; Stop at 12:26; Status DC Pantoprazole Sodium 80 mg/ Sodium Chloride 100 ml @ 10 mls/hr 1X ONCE IV Last administered on 03/29/18at 03:46; Start 03/29/18 at 03:15; Stop 03/29/18 at 13:14; Status DC Ceftriaxone Sodium 50 ml @ 100 mls/hr 1X ONCE IV Last administered on at 03:15; Start 03/29/18 at 03:15; Stop 03/29/18 at 03:44; Status DC Ondansetron HCl (Zofran) 4 mg PRN Q8HRS PRN IV NAUSEA/VOMITING; Start 03/29/18 at 04:30; Stop 03/30/18 at 04:29; Status DC Norepinephrine Bitartrate 250 ml @ 0 mls/hr 1X ONCE IV ; Start 03/29/18 at 04: 30; Stop 03/29/18 at 04:42; Status DC Sodium Chloride 1,000 ml @ 1,000 mls/hr 1X ONCE IV Last administered on at 04:30; Start 03/29/18 at 04:30; Stop 03/29/18 at 05:29; Status DC Sodium Chloride 500 ml @ 500 mls/hr 1X ONCE IV Last administered on at 12:15; Start 03/29/18 at 12:15; Stop 03/29/18 at 13:14; Status DC Zolpidem Tartrate (Ambien) 5 mg PRN QHS PRN PO INSOMNIA Last administered on at 23:06; Start 03/29/18 at 13:00 Propofol 20 ml @ As Directed STK-MED ONCE IV ; Start 03/29/18 at 12:59; Stop 06/05 at 13:00; Status DC Pantoprazole Sodium 80 mg/ Sodium Chloride 100 ml @ 10 mls/hr Q10H IV Last administered on 03/30/18at 09:30; Start 03/29/18 at 14:00; Stop 03/30/18 at 12:26 ; Status DC Sodium Chloride 1,000 ml @ 100 mls/hr Q10H IV Last administered on 03/30/18at 18:38; Start 03/29/18 at 17:00; Stop 03/30/18 at 19:48; Status DC Pantoprazole Sodium (Protonix) 40 mg DAILYAC PO Last administered on 04/03/18at 08:58; Start 03/31/18 at 07:30 Acetaminophen (Tylenol) 500 mg PRN Q6HRS PRN PO MILD PAIN / TEMP Last administered on 04/03/18at 11:26; Start 03/31/18 at 09:15 Ondansetron HCl (Zofran) 4 mg PRN Q6HRS PRN IV NAUSEA/VOMITING; Start 03/31/18 at 09:15 Ondansetron HCl (Zofran Odt) 4 mg PRN Q6HRS PRN PO NAUSEA/VOMITING; Start 03/31 at 09:15 Piperacillin Sod/ Tazobactam Sod (Zosyn Per Pharmacy) 1 each PRN DAILY PRN MC SEE COMMENTS; Start 03/31/18 at 11:45 Piperacillin Sod/ Tazobactam Sod 3.375 gm/Sodium Chloride 50 ml @ 100 mls/hr Q6HRS IV Last administered on 04/03/18at 11:26; Start 03/31/18 at 12:00 Lactobacillus Rhamnosus (Culturelle) 1 cap BID PO Last administered on at 08:58; Start 03/31/18 at 21:00 Albumin Human 100 ml @ 100 mls/hr Q1H IV Last administered on 04/01/18at 15:55 ; Start 04/01/18 at 11:45; Stop 04/01/18 at 13:44; Status DC Active Scripts Active Augmentin 875-125 Tablet (Amoxicillin/Potassium Clav) 1 Each Tablet 1 Tab PO BID Zofran Odt (Ondansetron) 4 Mg Tab.rapdis 1 Tab SL Q8HRS Culturelle (Lactobacillus Rhamnosus Gg) 1 Each Cap.sprink 1 Cap PO BID 14 Days or eat yogurt everyday [Pantoprazole] 40 MG Tablet. 40 Mg PO DAILYAC 60 Days [Pantoprazole] 40 MG Tablet.dr 40 Mg PO BIDAC 60 Days Vitals/I & O Vital Sign - Last 24 Hours 04/02/18 04/02/18 04/02/18 04/02/18 15:00 19:00 20:00 22:53 Temp 98.8 98.1 98.4 98.8 98.1 98.4 Pulse 96 95 92 Resp 17 16 17 B/P (MAP) 98/54 (69) 111/62 (78) 109/62 (78) Pulse Ox 98 96 96 O2 Delivery Room Air Room Air Room Air 04/03/18 04/03/18 04/03/18 03:00 07:00 08:00 Temp 97.9 97.9 Pulse 92 96 Resp 16 18 B/P (MAP) 106/67 (80) 121/78 (92) Pulse Ox 95 95 O2 Delivery Room Air Room Air Room Air O2 Flow Rate 3.0 Intake and Output 04/02/18 04/02/18 04/03/18 15:00 23:00 07:00 Intake Total 420 ml 250 ml Balance 420 ml 250 ml Nutrition Consultation Dietary Evaluation: Recommendations by RD: Increase Calorie Intake Comments: REC advance diet if able per GI within 24-48 hours, goal diet low-sodium, high protein If unable to advance diet recommend PPN for short-term nutrition needs while awaiting diet advancement Expected Outcomes/Goals: Diet advancement Interpretation of weight loss: >5% in 1 month Malnutrition Findings: Food and Nutrition Intake (Mod: <75% est energy req 7days Weight Status: Appropriate AMANDEEP BIRD MD Apr 03, 2018 11:45
[2018-04-03 15:00] VITALS: BP 115/74
[2018-04-03 19:00] VITALS: BP 119/84
[2018-04-03] MEDS: ZOLPIDEM 5 MG TABLET. PO PRN (21:35)
[2018-04-03 23:00] VITALS: BP 119/75
[2018-04-04 03:00] VITALS: BP 120/78
[2018-04-04] MEDS: PIPERACILLIN/TAZOBACTAM 3.375 GM in IV NORMAL SALINE 50ML 50 ML IV SCH ×2 (05:38→12:01)
[2018-04-04 07:00] VITALS: BP 113/77
--- NOTE | 2018-04-04 09:20 | PDOC3 ---
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 Patton is a 62 old male who used to be a heavy alcohol drinker , now diagnosed with end-stage liver cirrhosis came in because of variceal bleed , hematemesis, admits to the ICU. Stat EGD done - maybe needed some cautery. I am Unsure if he needed blood transfusion in the ICU. In any case I inherited him when transferred to the floors. Course remarkable for ascites recurrent, needing 3 L of paracentesis off, transudate. Some severe PCM, severely undernourished. Overall prognosis poor guarded. Patient has been sober for mos. GI has recommended palliative or hospice but family and patient is not ready for this. They have a financial report service sales agent appointment on April 14. I did need to give albumin and his albumin was 1.8 and continuously seeping fluid from the paracentesis site. To go home later after paracentesis if there is enough fluid to get out of him. Otherwise to keep his [facility] financial report service sales agent upon appointment April 14 consults performed GI Procedures performed EGD with possible cautery and paracentesis time discharge in greater than 35 minutes. Greater than 50% DC education counseling etc. Alcohol cessation counseling done Overall prognosis poor Discharge Information Condition at Discharge: Improved, Stable Follow Up: Weeks (apr 14 [facility] financial report service sales agent) Disposition/Orders: D/C to Home Scheduled Amoxicillin/Potassium Clav (Augmentin 875-125 Tablet) 1 Each Tablet, 1 TAB PO BID, #14 Prescribed by: AMANDEEP BIRD on 04/01/18 0857 Lactobacillus Rhamnosus Gg (Culturelle) 1 Each Cap.sprink, 1 CAP PO BID for 14 Days, #28 or eat yogurt everyday Prescribed by: AMANDEEP BIRD on 04/01/18 0856 Ondansetron (Zofran Odt) 4 Mg Tab.rapdis, 1 TAB SL Q8HRS, #15 Prescribed by: AMANDEEP BIRD on 04/01/18 0856 [Pantoprazole] 40 MG TABLET.DR, 40 MG PO BIDAC for 60 Days Prescribed by: AMANDEEP BIRD on 02/16/18 1020 Last Action: Reviewed on 03/31/18 0909 by AMANDEEP BIRD [Pantoprazole] 40 MG TABLET.DR, 40 MG PO DAILYAC for 60 Days Prescribed by: AMANDEEP BIRD on 04/01/18 0856 AMANDEEP BIRD MD Apr 04, 2018 09:20
[2018-04-04] MEDS ORDERED: LIDOCAINE WITH 8.4% SOD BICARB 3 ML DISP.SYRIN. ONE (09:42)
--- NOTE | 2018-04-04 09:46 | PDOC ---
Subjective: Subjective: Waiting for paracentesis. A little leakage of ascites over the weekend. Objective: Vital Signs: Vital Signs Date Time Temp Pulse Resp B/P (MAP) Pulse Ox O2 Delivery O2 Flow Rate FiO2 04/04/18 08:00 Room Air 04/04/18 07:00 98.2 93 18 113/77 (89) 98 98.2 04/03/18 08:00 3.0 Labs: AEROBIC CULTURE Preliminary Preliminary report AEROBIC RES 1 Preliminary Comment No growth in 36 - 48 hours. Performed at: [facility] - [facility] [address], [place], [place] [id number] [place] Specialty: NOLAN Rodriguez MD, Phone: [phone] GRAM STAIN Final Final report GRAM STAIN RESULT 1 Final Comment No white blood cells seen. GRAM STAIN RESULT 2 Final No organisms seen Imaging: LTD ABD US 04/01/18 IMPRESSION: 1. Moderate abdominal ascites. 2. Hepatic cirrhosis. No is made that the abdominal visceral and vascular structures are not formally assessed. PE: GEN: NAD, walking around room LUNGS: CTAB HEART: RRR ABD: distended/tight EXTREMITY: No edema NEURO/PSYCH: A & O 3 A/P: Cirrhosis and ascites - requiring repeat paracentesis -- D/w Dr. Arrieta/IR re: question of hepatic lesion on previous CT (not seen on US ) w/ elevated AFP and need for biopsy - suggests MRI first. Note plans for paracentesis again today and then DC - will order MRI to hopefully be done prior to DC. Was previously on beta jv for varices (non-bleeding), has not been on diuretic. Called by RN - family prefers to wait on MRI until seen at [facility] apparently moved to 04/14. ROSA MARIA GILES Apr 04, 2018 09:46
[2018-04-04 09:57] VITALS: BP 161/87
[2018-04-04] MEDS ORDERED: LIDOCAINE WITH 8.4% SOD BICARB 3 ML DISP.SYRIN. IJ ONE (10:00)
[2018-04-04 10:11] VITALS: BP 141/90
[2018-04-04 10:27] VITALS: BP 144/89
[2018-04-04] MEDS ORDERED: IBUPROFEN 600 MG TABLET. PO PRN (11:45)
--- NOTE | 2018-04-04 11:45 | PDOC ---
BRIEF OPERATIVE NOTE Pre-Op Diagnosis Ascites Post-Op Diagnosis same Procedure Performed US paracentesis Surgeon Berny Anesthesia Type: Local Findings 4500 thin yellow ascites Complications No immediate CRIS HARP MD Apr 04, 2018 11:45
[2018-04-04] MEDS: LACTOBACILLUS RHAMNOSUS GG 1 CAPSULE. PO SCH (12:00)
[2018-04-04] MEDS: PANTOPRAZOLE 40 MG TABLET.DR. PO SCH (12:00)
--- NOTE | 2018-04-04 16:13 | RAD ---
Procedure: Ultrasound guided paracentesis Clinical Indication: 62-year-old with abdominal ascites, recurrent Sedation: Local anesthesia only Antibiotics: None Fluoro Time: None Contrast: Not applicable Sterility: The procedure was performed in its entirety using appropriate elements of sterile technique. Consent: The procedure was explained in its entirety to the patient or the patients designated hvac sales representative by a member of the treatment team, including a discussion of the risks, benefits and commonly accepted alternatives to the procedure, as well as the expected consequences of no therapy whatsoever. Discussion of the risks included, but was not limited to, those that are most frequent and those that are rare but possibly severe or life-threatening, as well as the possibility of unforeseen complications. Technique and Findings: Following informed consent, the patient was prepped and draped in the usual sterile fashion. Ultrasound interrogation of the abdomen revealed abdominal ascites. A hard copy ultrasound image was recorded. 1% Lidocaine was used to achieve local anesthesia over the area of interest, and a 6 Croatian [id number] catheter was advanced into the peritoneal cavity under ultrasound guidance. 4500 cc of thin yellow ascites was then withdrawn. The catheter was removed and hemostasis was achieved with manual compression. Complications: No immediate Impression: 1. Ultrasound-guided paracentesis as described
== END 2018-04-04 15:00 | disposition home or self-care (01) | DRG 432 ==
LOC: ER 02:43 → 1 WEST ICU 04:31 → 5 SOUTH 03-30 16:11
PROVIDERS: ADMIT Internal Medicine; ATTEND Internal Medicine
PROC: 30233N1 Transfusion of Nonautologous Red Blood Cells into Peripheral Vein, Percutaneous Approach (ICD-10-PCS; 2018-03-29)
PROC: 0DJ08ZZ Inspection of Upper Intestinal Tract, Via Natural or Artificial Opening Endoscopic (ICD-10-PCS; principal; 2018-03-29 13:00)
PROC: 0W9G30Z Drainage of Peritoneal Cavity with Drainage Device, Percutaneous Approach (ICD-10-PCS; 2018-03-31)
PROC: 0W9G30Z Drainage of Peritoneal Cavity with Drainage Device, Percutaneous Approach (ICD-10-PCS; 2018-04-04)
PROC: 0W9G30Z Drainage of Peritoneal Cavity with Drainage Device, Percutaneous Approach (ICD-10-PCS; 2018-04-04)
DX: K70.31 Alcoholic cirrhosis of liver with ascites (principal); I85.11 Secondary esophageal varices with bleeding; I81 Portal vein thrombosis; E43 Unspecified severe protein-calorie malnutrition; K22.6 Gastro-esophageal laceration-hemorrhage syndrome; K92.2 Gastrointestinal hemorrhage, unspecified; K76.6 Portal hypertension; J98.11 Atelectasis; Z68.1 Body mass index [BMI] 19.9 or less, adult; K31.89 Other diseases of stomach and duodenum; B19.20 Unspecified viral hepatitis C without hepatic coma; D50.0 Iron deficiency anemia secondary to blood loss (chronic); E87.5 Hyperkalemia; K31.9 Disease of stomach and duodenum, unspecified; Z51.5 Encounter for palliative care; H26.9 Unspecified cataract; Z91.041 Radiographic dye allergy status; Z87.19 Personal history of other diseases of the digestive system; Z71.89 Other specified counseling; Z82.49 Family history of ischemic heart disease and other diseases of the circulatory system
CPT/HCPCS: 36415; 49083; 71046; 76705; 80048; 80053; 81001; 82040; 82042; 83605; 83690; 84132; 85018; 85025; 85027; 85610; 85730; 86850; 86900; 86901; 86920; 87040; 87070; 87641; 96365; 96368; 96375; C9113; J0690; J2354; J2405; J2543; J2704; J7030; J7040; P9016; P9046; 99285-25